=== PATIENT | male | born 1950 | race Caucasian/White ===

== ENCOUNTER 2016-11-13 13:10 | Inpatient (IN) | payer MEDICARE, MEDICAID ==
[2016-11-13 13:43] LABS: % LYMPHOCYTES 14.5 % (20.0-50.0); % MONOCYTES 10.6 % (2.0-10.0); % NEUTROPHILS 73.9 % (40.0-80.0); HEMATOCRIT 39.3 % (39.0-49.0); HEMOGLOBIN 13.4 gm/dL (12.6-17.4); MEAN CELL VOLUME 90.1 fl (80-99); MEAN CORPUSCULAR HEMOGLOBIN 30.8 pg (27.0-31.0); MEAN CORPUSCULAR HGB CONC 34.2 pg (28.0-36.0); MEAN PLATELET VOLUME 7.8 fl; NEUTROPHILE ABSOLUTE 5.3 Th/cmm (1.8-8.0); PLATELET COUNT 183 Th/cmm (150-400); RED BLOOD COUNT 4.37 Mil/cmm (3.80-5.80); RED CELL DISTRIBUTION WIDTH 12.6 % (11.5-20.0); WHITE BLOOD COUNT 7.3 Th/cmm (4.8-10.8)
--- NOTE | 2016-11-13 13:51 | ED Physician Chart ---
Chief Complaint/HPI - Patient Information Date Seen:: 11/13/16 Time Seen:: 13:30 Chief Complaint:: Agitation History of Present Illness:: onset x 2 days of agitation, combative behavior, and aggression; no report of SIs; pt denies H/As, Neck pain, C/P, SOB, cough, Abd. Pain, A/N/V/D/C, fever, chills, or urinary s/s Allergies:: Allergies Allergy/AdvReac Type Severity Reaction Status Date / Time chlorpromazine AdvReac Verified 11/13/16 13:27 Vitals:: Vital Signs - 8 hr 11/13/16 13:31 Temp 98.1 F HR 99 RR 16 BP 114/85 O2 Sat % 97 Historian:: Patient, EMS Review:: Nurse's Note Reviewed, Old Chart Reviewed, EMS run form Reviewed, Transfer documents Reviewed Review of Systems - Review of Systems General/Constitutional: Fever, Chills, No weight loss, No weakness, No diaphoresis, No edema, No loss of appetite Skin: Skin lesions, Rash, No bruising Head: No headache, No light-headedness Eyes: No loss of vision, No pain, No diplopia ENT: No earache, No nasal drainage, No sore throat, No tinnitus Neck: No neck pain, No swelling, No thyromegaly, No stiffness, No mass noted Cardio Vascular: No chest pain, No palpitations, No PND, No orthopnea, No edema Pulmonary: No SOB, No cough, No sputum, No wheezing GI: No nausea, No vomiting, No diarrhea, No pain, No melena, No hematochezia, No constipation, No hematemesis G/U: No dysuria, No frequency, No hematuria Musculoskeletal: No bone or joint pain, No back pain, No muscle pain Endocrine: No polyuria, No polydipsia Psychiatric: Prior psych history, Depression, Anxiety, No suicidal ideation, No homicidal ideation, No auditory hallucination, No visual hallucination Hematopoietic: No bruising, No lymphadenopathy Allergic/Immuno: No urticaria, No angioedema Neurological: No syncope, No focal symptoms, No weakness, No paresthesia, No headache, No seizure, No dizziness, No confusion, No vertigo Past Medical History - Past Medical History Obtainable: Yes Past Medical History: HTN Family History: HTN Social History: Smoker, No Alcohol, No Drug Use, Single, Care Facility Surgical History: None Psychiatricy History: Depression, Bipolar Medication: Reviewed Family Medical History - Family Member Mother History Unknown: Yes Physical Exam - Physical Examination General/Constitutional: Awake, Well-developed, well-nourished, Alert, No distress, GCS 15, Non-toxic appearing, Ambulatory Head: Atraumatic Eyes: Lids, conjuctiva normal, PERRL, EOMI Skin: Nl inspection, No rash, No skin lesions, No ecchymosis, Well hydrated, No lymphadenopathy ENMT: External ears, nose nl, Nasal exam nl, Lips, teeth, gums nl Neck: Nontender, Full ROM w/o pain, No JVD, No nuchal rigidity, No bruit, No mass, No stridor Respiratory: Nl effort/Exclusion, Clear to Auscultation, No Wheeze/Rhonchi/Rales Cardio Vascular: RRR, No murmur, gallop, rubs, NL S1 S2 GI: No tenderness/rebounding/guarding, No organomegaly, No hernia, Normal BS's, Nondistended, No mass/bruits, No McBurney tenderness : No CVA tenderness Extremities: No tenderness or effusion, Full ROM, normal strength in all extremities, No edema, Normal digits & nails Neuro/Psych: Alert/oriented, DTR's symmetric, Normal sensory exam, Normal motor strength, Normal gait, No focal deficits Other Neuro/Psych comments:: + Psychomotor Agitation; Mood/Affect: Labile Misc: normal gait, Normal back, No paraspinal tenderness Labs/Radiology/EKG Results - Lab Results Results: Laboratory Tests 11/13/16 13:30 WBC 7.3 RBC 4.37 Hgb 13.4 Hct 39.3 MCV 90.1 MCH 30.8 MCHC Differential 34.2 RDW 12.6 Plt Count 183 MPV 7.8 Neutrophils % 73.9 Lymphocytes % 14.5 L Monocytes % 10.6 H Eosinophils % 1.0 Basophils % 0.0 Comments:: Na+: 127 ED Septic Shock - . Is Septic Shock (SBP<90, OR Lactate>4 mmol\L) present?: No - <6hrs of presentation: Vital Signs: Vital Signs - 8 hr 11/13/16 13:31 Temp 98.1 F HR 99 RR 16 BP 114/85 O2 Sat % 97 Reassessment (Disposition) - Reassessment Reassessment Condition:: Improved - Diagnosis Diagnosis:: Hyponatremia; Dehydration; Manic-Depression - Aftercare/Follow up Instructions Aftercare/Follow-Up Instructions:: Counseled pt regarding lab results/diagnosis & need follow up, Counseled pt & family regarding lab results/diagnosis & need follow up - Patient Disposition Discharge/Transfer:: Acute Care w/in this hosp Accepting Physician:: Dr. Leone Time Called:: [id number] Time Responded:: 14:45 Admitted to:: Med/Surg Spoke to:: Dr. Leone Admitting Medical Physician:: Dr. Leone Condition at Disposition:: Stable, Improved ED Discharge Plan - Patient Disposition Instructions: Psychosis
[2016-11-13 14:03] LABS: ALB/GLOB RATIO 1.8 (1.0-1.8); ALKALINE PHOSPHATASE 65 U/L (34-104); ANION GAP 4.6 (7.0-16.0); BILIRUBIN,TOTAL 0.4 mg/dL (0.3-1.0); BUN - UREA NITROGEN 14 mg/dL (7-25); BUN/CREATININE RATIO 17.5; CALCIUM SERUM 9.3 mg/dL (8.6-10.3); CARBON DIOXIDE 26.4 mEq/L (21.0-31.0); CHLORIDE 100 mEq/L (98-107); CHOLESTEROL 133 mg/dL (<200); CREATININE - SERUM 0.8 mg/dL (0.7-1.3); GLUCOSE 95 mg/dL (70-105); SGOT 18 U/L (13-39); SGPT/ALT 3 U/L (7-52); SODIUM SERUM 127 mEq/L (136-145); TRIGLYCERIDES 49 mg/dL (<150)
[2016-11-13 14:34] LABS: URINE BILIRUBIN NEGATIVE (NEGATIVE); URINE BLOOD NEGATIVE (NEGATIVE); URINE GLUCOSE (UA) NEGATIVE (NEGATIVE); URINE KETONE NEGATIVE (NEGATIVE); URINE PH 6.5 (4.6 - 8.0); URINE PROTEIN NEGATIVE (NEGATIVE); URINE UROBILINOGEN 0.2 E.U./dL (0.2 - 1.0)
[2016-11-13 14:39] LABS: URINE AMORPHOUS SEDIMENT FEW URATES (NONE SEEN); URINE BACTERIA FEW /hpf (NONE SEEN); URINE COLOR YELLOW; URINE EPITHELIAL CELLS RARE /lpf (FEW); URINE RBC NONE SEEN /hpf (0-5); URINE WBC 0-2 /hpf (0-5)
[2016-11-13] MEDS: Sodium Chloride 0.9% 1,000 ML IV ONE ×2 (15:05→17:57)
[2016-11-13] MEDS ORDERED: VTE Chemical Prophylaxis Screen/Admission MC PRN (17:40)
--- NOTE | 2016-11-13 20:58 | Admit Criteria Form ---
Admit Criteria Forms - Admit Criteria Diagnosis: PSYCHIATRIC DISORDERS (Place 'X' for any and all applicable criteria): Ongoing inpatient care may be needed for 1 or more of the following(1)(2)(3)(4)( 6)(7)(8): [ ]I. Danger to self or others not manageable at lower level of care. [ ]II. Grave disability (eg, inability to perform self care necessary at lower level of care) [ ]III. Agitation or inappropriate behavior interfering with care for primary condition (eg, attempting to discontinue lines or drains prematurely, unable to cooperate with respiratory care) [X ]IV. Severe disability or disorder indicated by ALL of the following: [X ]a) Severe behavioral health disorder-related symptoms or condition indicated by 1 or more of the following: [ ]i) Severe problem with cognition, memory, judgment, or impulse control [ X]ii) Severe clinical manifestations (eg, hallucinations , delusions, other acute psychotic symptoms, doris, extreme agitation or anxiety) [X ]b) Patient management at lower level of care is not feasible until acute intervention or modification is initiated. Extended stay beyond goal length of stay for the primary condition may be needed until ALLof the following are present(1)(2)(3)(4)(7)62)(23): [ ]a) Danger to self or others is absent or manageable at lower level of care [ ]b) Behavior crisis management, including physical or chemical restraints, is required and is not available at a lower level of care. [ ]c) Behavioral symptoms (e.g., agitation, somnolence, inappropriate behavior) are present, and are not manageable at a lower level of care. [ ]d) Patient cannot understand follow-up treatment and crisis plan. [ ]e) Provider and supports are sufficiently available at lower level of care. [ ]f) Patient can participate (e.g., verify absence of plan for harm) and is in needed of monitoring. The original [facility] content created by [facility] has been revised. The portions of the content which have been revised are identified through the use of italic text or in bold, and [facility] has neither reviewed nor approved the modified material. All other unmodified content is copyright [facility]. Please see references footnoted in the original [facility] edition 2017 Admit Criteria Met?: Yes
--- NOTE | 2016-11-13 21:27 | History & Physical ---
ADMIT DATE: 11/13/2016 HISTORY OF PRESENT ILLNESS: The patient came to the Emergency Room because of his combative behavior, aggression and apparently had no cough, no chest pain, no other problem, and he was found to have hyponatremia on 05/03/2016 and was admitted for medical lin first before sending him to the Geropsych Unit. The patient is a poor historian. All the notes were from the previous chart. REVIEW OF SYSTEMS: Otherwise, decreased sensorium. PAST MEDICAL HISTORY: The patient is known to have a history of hypertension in the past, history of depression and bipolar. PHYSICAL EXAMINATION: HEAD: Normal. ENT: Normal. LUNGS: Clear. CARDIOVASCULAR SYSTEM: S1 and S2 heard. ABDOMEN: Soft. Bowel sounds are heard. CENTRAL NERVOUS SYSTEM: Decreased sensorium. LABORATORY DATA: White count was 97.3 and hemoglobin 13.4. Electrolytes are normal. DIAGNOSES: Hyponatremia, dehydration, manic depression, severe agitation, and psychosis. PLAN: The patient is being admitted initially to give him normal saline. We will repeat his labs, and we will also have Dr. Lyons see the patient, and Dr. Smith will see the patient for his psych problem in the Geropsych Unit. JOB# [id number]
[2016-11-14 07:13] LABS: ANION GAP 8.9 (7.0-16.0); BUN - UREA NITROGEN 14 mg/dL (7-25); BUN/CREATININE RATIO 17.5; CALCIUM SERUM 9.6 mg/dL (8.6-10.3); CARBON DIOXIDE 24.1 mEq/L (21.0-31.0); CHLORIDE 104 mEq/L (98-107); CREATININE - SERUM 0.8 mg/dL (0.7-1.3); GLUCOSE 90 mg/dL (70-105); SODIUM SERUM 133 mEq/L (136-145)
--- NOTE | 2016-11-14 15:02 | History & Physical ---
ADMIT DATE: 11/13/2016 HISTORY OF PRESENT ILLNESS: The patient came to the Emergency Room because of aggressive behavior and the patient had a workup done for hyponatremia. Initially was admitted to the medical floor, was given some normal saline and later on, his sodium level came back up. The patient known to have history of hypertension, depression, and bipolar in the past. PHYSICAL EXAMINATION: VITAL SIGNS: Stable. HEAD: Normal. ENT: Normal. NECK: Supple, nontender. LUNGS: Clear. CARDIOVASCULAR SYSTEM: S1, S2 heard. ABDOMEN: Soft. DIAGNOSES: 1. Hyponatremia, improved. 2. Dehydration, improved. 3. Severe manic depression. 4. Severe agitation. 5. Psychosis. Dr. Smith, psychiatrist, had seen the patient and the patient was sent to the Geropsych Unit for the history and physical for Geropsych Unit. I will follow along with psychiatrist regarding hypertension and monitoring his electrolytes if any other problem arises. JOB# [id number]
--- NOTE | 2016-12-02 22:41 | Discharge Summary ---
DATE OF DISCHARGE: 11/14/2016 HOSPITAL COURSE: The patient was admitted on 11/13/2016 to the medical floor with a history of hyponatremia, dehydration, history of manic depression, history of psychosis. Dr. Smith was the psychiatrist ____ hyponatremia was treated with IV normal saline, improved, and his hyponatremia ____. The patient was in a stable condition on 11/14/2016. The patient was sent to Geropsych Unit where I will be following the patient. FINAL DIAGNOSES: Hyponatremia improved, dehydration improved, malnutrition, and history of psychosis. JOB# [id number]
== END 2016-11-14 09:55 | DRG 640 ==
LOC: ER 13:10 → MSI 14:26
PROVIDERS: ADMIT Internal Medicine; ATTEND Internal Medicine
DX: E87.1 Hypo-osmolality and hyponatremia (principal); E41 Nutritional marasmus; E86.0 Dehydration; F30.9 Manic episode, unspecified; I10 Essential (primary) hypertension; F29 Unspecified psychosis not due to a substance or known physiological condition; F17.210 Nicotine dependence, cigarettes, uncomplicated; Z88.8 Allergy status to other drugs, medicaments and biological substances; Z82.49 Family history of ischemic heart disease and other diseases of the circulatory system; Z68.21 Body mass index [BMI] 21.0-21.9, adult
CPT/HCPCS: 36415-UA; 80048-TC; 80053-TC; 80061-TC; 81001-TC; 84443-TC; 85025-TC; 86592-TC; 93005; J7030

== ENCOUNTER 2016-11-14 09:56 | Inpatient (IN) | payer MEDICARE, MEDICAID ==
[2016-11-14 13:19] VITALS: BP 136/81
[2016-11-14] MEDS ORDERED: Magnesium Hydroxide (MOM) 30 mL UDC PO PRN (13:25)
[2016-11-14] MEDS ORDERED: Maalox 30 mL Cup PO PRN (13:25)
--- NOTE | 2016-11-15 00:18 | Psychosocial Evaluation ---
DATE OF SERVICE: 11/14/2016 CHIEF COMPLAINT: Agitation and aggressive behavior. HISTORY OF PRESENT ILLNESS: The patient was admitted to the hospital on a 5150 hold because of dangerous to others. The patient became aggressive and agitated in the half-way [place] he lives. He starts to attack staff and other residents for no apparent reason. Also, has been severely angry and irritable. Chart reviewed and I tried to interview the patient. The patient is severely paranoid and he said "I don't talk to Mexicans." He refused to answer any of my questions and was extremely angry and agitated and irritable. Also did not answer any of other questions and kept walking ignoring my questions, and I had to follow him, but at the same time he was more angry and I had quit my trials to interview him. Most of the information was obtained from the chart and from my trial. PAST PSYCHIATRIC HISTORY: The patient has history of what seems to be schizophrenia versus schizoaffective. He is on Risperdal. PAST MEDICAL HISTORY: Noncontributory. SOCIAL HISTORY: The patient lives in a half-way. No known alcohol or drug use. No known legal issues or abuse issues. ALLERGIES: No known allergies. MENTAL STATUS EXAMINATION: The patient appears older than his stated age. Wearing a hat. Disheveled and dirty. Angry and irritable mood. Guarded and did not answer any of my questions because of anger and paranoia. Did not answer question regarding hallucinations or delusions or suicide or homicide, and unable to assess the rest of the mental status exam. ASSESSMENT: PRIMARY DIAGNOSIS: Chronic paranoid schizophrenia with acute exacerbation. SECONDARY DIAGNOSIS: Rule out schizoaffective disorder. TREATMENT PLAN: We will give the patient Risperdal and we will adjust the dose. Also, we will monitor his behavior and to do behavioral modification. ESTIMATED LENGTH OF STAY: 7-10 days. THE PATIENT'S STRENGTHS AND WEAKNESSES: The patient's strength is not clear at this time. Weakness is his poor impulse control. AFTER DISCHARGE PLAN: Outpatient treatment and followup will continue as an outpatient. CRITERIA FOR DISCHARGE: The patient will not be aggressive and will stabilize with psychotropic medications and will establish outpatient treatment plans. JOB# [id number]
--- NOTE | 2016-11-15 02:47 | Consultation ---
DATE OF CONSULTATION: 11/14/2016 SINGLE FOLD MACHINE OPERATOR: Terrance Lyons M.D. REASON FOR CONSULTATION: Hyponatremia. HISTORY OF PRESENT ILLNESS: This is a 66-year-old male with past medical history of hypertension, who was brought in because of aggressive fever. A few hours prior to admission, the patient was very aggressive, combative, and uncooperative to the staff and residents. He was then brought to the Emergency Room. Sodium level was low at 127 with a white count of 7.3. He was admitted initially at [facility]/Surg. He was started on sodium chloride tablets. His sodium improved to 133 and was subsequently transferred to [facility]. He denied any nausea and vomiting, as well as diarrhea. PAST MEDICAL HISTORY: 1. Essential hypertension. 2. Bipolar disorder. 3. Depression. 4. Parkinson's disease. CURRENT MEDICATIONS: Acetaminophen, lorazepam, atenolol, carbidopa levodopa, oxybutynin, Risperdal, and sodium chloride tablets. ALLERGIES: ALLERGIC TO . SOCIAL AND FAMILY HISTORY: I was not able to get directly from the patient because he refused to provide information. PHYSICAL EXAMINATION: GENERAL: The patient is awake, verbal, slightly uncooperative. VITALS SIGNS: Vitals are stable. SKIN: Good turgor, warm, no rash, no jaundice appreciated. HEENT: Head: Normocephalic, atraumatic. Eyes: Extraocular muscles intact. Pupils are equal, round, reactive to light and accommodates. Anicteric sclerae. [place] conjunctivae. Nose, midline nasal septum. Mouth: Dry mucosa with adequate dentition. NECK: Supple, no adenopathy, no thyromegaly, no bruits. Trachea palpated in the midline. CHEST AND CVS: S1, S2. No rub, murmur, no gallop appreciated. Point of maximal impulse fifth intercostal space clavicular line. No abdominal or femoral bruits appreciated. LUNGS: Equal expansion. No use of accessory muscles. No supraclavicular retractions, decreased breath sounds, clear to auscultation without any wheeze. ABDOMEN: Flat, soft. Positive for bowel sounds. No bruits either diastolic or systolic. RECTAL: The patient refused. GENITOURINARY: He refused. EXTREMITIES: He has a palpable femoral, but unable to fully appreciate popliteal and dorsalis pedis pulses. He has no edema, cyanosis nor clubbing. NEUROLOGIC: The patient is verbal, answers to questions as he desires with voluntary movements of all of his extremities. IMPRESSION: 1. Hyponatremia secondary to increased sodium loss secondary to free water loss. 2. Acute decompensation of psychosis. 3. Bipolar disorder. 4. Depression. 5. Parkinson's disease. PLAN: 1. Regular diet. 2. Monitor electrolytes as needed. 3. Further workup will depend on results of electrolytes. Thank you, Dr. Palomo for this consult. I will follow the patient closely with you. JOB# [id number]
[2016-11-15] MEDS ORDERED: Haloperidol Lactate 5 mg/mL 1mL Vial ONE ×2 (07:14→07:15)
[2016-11-15] MEDS ORDERED: Haloperidol Lactate 5 mg/mL 1mL Vial IM STA (07:16)
[2016-11-15] MEDS: Multivitamin Tab PO SCH (09:10)
[2016-11-15] MEDS: Oxybutynin Chloride 5 mg ER Tab PO SCH (09:10)
--- NOTE | 2016-11-15 12:18 | General Progress Note ---
Subjective - Review of Systems Events since last encounter: no change patient still irritable agressive behaviour denies cough , denies cp Objective - Physical Exam Vitals and I&O: Vital Signs Temp 98.0 F 11/14/16 11:02 Pulse 97 11/14/16 11:02 Resp 20 11/14/16 11:02 BP 136/81 11/14/16 13:18 Pulse Ox 97 11/14/16 11:02 Intake & Output 11/14/16 11/15/16 11/15/16 18:59 06:59 18:59 Intake Total 120 Balance 120 Intake: Oral 120 Other: # Voids 1 # Bowel Movements 0 Active Medications: Current Medications Acetaminophen (Tylenol) 650 mg PO Q4HR PRN PRN Reason: Mild Pain / Temp above 100 Stop: 01/13/17 13:24 Al Hydrox/Mg Hydrox/Simethicone (Maalox) 30 ml PO Q4HR PRN PRN Reason: GI DISTRESS Stop: 01/13/17 13:24 Carbidopa/Levodopa (Sinemet 25 Mg-250 Mg) 1 tab PO QID [facility] Stop: 01/13/17 16:59 Last Admin: 11/15/16 09:10 Dose: 1 tab Lorazepam (Ativan) 1 mg PO Q4HR PRN; Protocol PRN Reason: Anxiety Stop: 01/13/17 14:16 Magnesium Hydroxide (Milk Of Magnesia) 30 ml PO HS PRN PRN Reason: Constipation Multivitamins/Vitamin C (Theragran) 1 tab PO DAILY RICARDO Stop: 01/14/17 08:59 Last Admin: 11/15/16 09:10 Dose: 1 tab Oxybutynin Chloride (Ditropan Xl) 5 mg PO DAILY RICARDO Stop: 01/14/17 08:59 Last Admin: 11/15/16 09:10 Dose: 5 mg Risperidone (Risperdal) 3 mg PO BID RICARDO PRN Reason: Protocol Stop: 01/13/17 16:59 Last Admin: 11/15/16 09:10 Dose: 3 mg Sodium Chloride (Nacl Tab) 2 gm PO BID RICARDO Stop: 01/13/17 16:59 Last Admin: 11/15/16 09:11 Dose: 2 gm Zolpidem Tartrate (Ambien) 5 mg PO HS PRN PRN Reason: Insomnia Stop: 01/13/17 13:24 - Procedures Procedures: Procedures Procedure Code Date INDIVID PSYCHOTHERAP NEC 94.39 10/14/05 OTHER GROUP THERAPY 94.44 11/11/05 RECREATIONAL THERAPY 93.81 10/14/05
--- NOTE | 2016-11-15 20:54 | Progress Notes ---
DATE: 11/15/2016 SUBJECTIVE: Chart reviewed and the patient interviewed. Also discussed the patient's condition with the staff and reviewed records and labs. The patient is confused and he is still suspicious and paranoid. The patient also is still easily agitated. Also, still needs lots of redirections. He also is still yelling and screaming constantly and is in angry and in irritable mood. During interview, the patient is confused and agitated. Also, has thought processes that are disorganized and circumstantial with flight of ideas. ASSESSMENT: The patient is still aggressive and agitated and psychotic. TREATMENT PLAN: We will continue to monitor his behavior and his condition closely. Also, we will continue the patient on Risperdal 3 mg twice a day and we will monitor his behavior and his medications closely. JOB# [id number]
[2016-11-16] MEDS: Multivitamin Tab PO SCH (08:10)
[2016-11-16] MEDS: Oxybutynin Chloride 5 mg ER Tab PO SCH (08:10)
--- NOTE | 2016-11-16 20:49 | Internal Medicine Prog Note ---
Internal Medicine Objective - Physical Exam Vitals and I&O: Vital Signs Temp 97 F 11/16/16 14:00 Pulse 87 11/16/16 14:00 Resp 20 11/16/16 14:00 BP 123/80 11/16/16 14:00 Pulse Ox 96 11/16/16 14:00 Intake & Output 11/16/16 11/16/16 11/17/16 06:59 18:59 06:59 Intake Total 720 2400 Balance 720 2400 Intake: Oral 720 2400 Other: # Voids 1 4 # Bowel Movements 0 Active Medications: Current Medications Acetaminophen (Tylenol) 650 mg PO Q4HR PRN PRN Reason: Mild Pain / Temp above 100 Stop: 01/13/17 13:24 Al Hydrox/Mg Hydrox/Simethicone (Maalox) 30 ml PO Q4HR PRN PRN Reason: GI DISTRESS Stop: 01/13/17 13:24 Carbidopa/Levodopa (Sinemet 25 Mg-250 Mg) 1 tab PO QID RICARDO Stop: 01/13/17 16:59 Last Admin: 11/16/16 17:09 Dose: 1 tab Lorazepam (Ativan) 1 mg PO Q4HR PRN; Protocol PRN Reason: Anxiety Stop: 01/13/17 14:16 Magnesium Hydroxide (Milk Of Magnesia) 30 ml PO HS PRN PRN Reason: Constipation Multivitamins/Vitamin C (Theragran) 1 tab PO DAILY RICARDO Stop: 01/14/17 08:59 Last Admin: 11/16/16 08:10 Dose: 1 tab Oxybutynin Chloride (Ditropan Xl) 5 mg PO DAILY RICARDO Stop: 01/14/17 08:59 Last Admin: 11/16/16 08:10 Dose: 5 mg Risperidone (Risperdal) 3 mg PO BID RICARDO PRN Reason: Protocol Stop: 01/13/17 16:59 Last Admin: 11/16/16 17:09 Dose: 3 mg Sodium Chloride (Nacl Tab) 2 gm PO BID RICARDO Stop: 01/13/17 16:59 Last Admin: 11/16/16 17:09 Dose: 2 gm Zolpidem Tartrate (Ambien) 5 mg PO HS PRN PRN Reason: Insomnia Stop: 01/13/17 13:24 Last Admin: 11/15/16 21:32 Dose: 5 mg - Procedures Procedures: Procedures Procedure Code Date INDIVID PSYCHOTHERAP NEC 94.39 10/14/05 OTHER GROUP THERAPY 94.44 11/11/05 RECREATIONAL THERAPY 93.81 10/14/05
--- NOTE | 2016-11-16 22:07 | Progress Notes ---
DATE: 11/16/2016 The patient was seen, chart reviewed, and discussed with staff. The patient continues to be extremely paranoid, hypervigilant, very confused, and easily irritable, requires almost constant redirections. He has, however, been compliant with his medications. PLAN: The patient continues to be actively psychotic, unpredictable, so that he will require ____ treatment. We will monitor the patient on a daily basis for his response to treatment and titrate meds as needed. JOB# [id number]
[2016-11-17] MEDS: Oxybutynin Chloride 5 mg ER Tab PO SCH (08:22)
[2016-11-17] MEDS: Multivitamin Tab PO SCH (08:22)
--- NOTE | 2016-11-17 08:51 | General Progress Note ---
Subjective - Review of Systems Events since last encounter: patient continues to be paranoid ,confused no acute distress Objective - Physical Exam Vitals and I&O: Vital Signs Temp 98.8 F 11/17/16 06:58 Pulse 85 11/17/16 06:58 Resp 20 11/17/16 06:58 BP 122/66 11/17/16 06:58 Pulse Ox 98 11/17/16 06:58 Intake & Output 11/16/16 11/17/16 11/17/16 18:59 06:59 18:59 Intake Total 2400 120 Balance 2400 120 Intake: Oral 2400 120 Other: # Voids 4 3 # Bowel Movements 0 Active Medications: Current Medications Acetaminophen (Tylenol) 650 mg PO Q4HR PRN PRN Reason: Mild Pain / Temp above 100 Stop: 01/13/17 13:24 Al Hydrox/Mg Hydrox/Simethicone (Maalox) 30 ml PO Q4HR PRN PRN Reason: GI DISTRESS Stop: 01/13/17 13:24 Carbidopa/Levodopa (Sinemet 25 Mg-250 Mg) 1 tab PO QID [facility] Stop: 01/13/17 16:59 Last Admin: 11/17/16 08:22 Dose: 1 tab Lorazepam (Ativan) 1 mg PO Q4HR PRN; Protocol PRN Reason: Anxiety Stop: 01/13/17 14:16 Magnesium Hydroxide (Milk Of Magnesia) 30 ml PO HS PRN PRN Reason: Constipation Multivitamins/Vitamin C (Theragran) 1 tab PO DAILY RICARDO Stop: 01/14/17 08:59 Last Admin: 11/17/16 08:22 Dose: 1 tab Oxybutynin Chloride (Ditropan Xl) 5 mg PO DAILY RICARDO Stop: 01/14/17 08:59 Last Admin: 11/17/16 08:22 Dose: 5 mg Risperidone (Risperdal) 3 mg PO BID RICARDO PRN Reason: Protocol Stop: 01/13/17 16:59 Last Admin: 11/17/16 08:22 Dose: 3 mg Sodium Chloride (Nacl Tab) 2 gm PO BID RICARDO Stop: 01/13/17 16:59 Last Admin: 11/17/16 08:22 Dose: Not Given Zolpidem Tartrate (Ambien) 5 mg PO HS PRN PRN Reason: Insomnia Stop: 01/13/17 13:24 Last Admin: 11/16/16 22:49 Dose: 5 mg General: No acute distress HEENT: PERRLA Cardiovascular: Regular rate, Normal S1 - Procedures Procedures: Procedures Procedure Code Date INDIVID PSYCHOTHERAP NEC 94.39 10/14/05 OTHER GROUP THERAPY 94.44 11/11/05 RECREATIONAL THERAPY 93.81 10/14/05 Assessment/Plan - Problem List Patient Problems: All Active Problems Bipolar disease, chronic (Acute) F31.9 Depression (Acute) F32.9 HTN (hypertension) (Acute) I10 Parkinson disease (Acute) G20 - Plan Plan: cpm as per psych
--- NOTE | 2016-11-17 21:55 | Progress Notes ---
DATE: 11/17/2016 SUBJECTIVE: The patient seen, chart reviewed, discussed with staff. Currently in the hospital due to agitation, aggressive behaviors, agitated and aggressive in a [facility] where he lives, started to attack staff, angry, irritable. On [id number], the patient states he is in the hospital because "I got a cold." States the year is 2016, month is November. States he lives in a hospital, disoriented, confused, remains impulsive, unpredictable. ASSESSMENT: The patient remains symptomatic, impulsive, history of violence and aggressive behaviors. PLAN: Continue Risperdal, monitor closely. Given the severity of the patient's current ongoing symptoms, he is not safe for discharge. [facility]# [id number]
--- NOTE | 2016-11-18 07:54 | General Progress Note ---
Subjective - Review of Systems Subjective: awake, resting comfortable nad Objective - Physical Exam Vitals and I&O: Vital Signs Temp 98.0 F 11/18/16 05:33 Pulse 73 11/18/16 05:33 Resp 20 11/18/16 05:33 BP 101/69 11/18/16 05:33 Pulse Ox 96 11/18/16 05:33 Intake & Output 11/17/16 11/18/16 11/18/16 18:59 06:59 18:59 Intake Total 2400 Balance 2400 Intake: Oral 2400 Other: # Voids 4 2 # Bowel Movements 1 0 Active Medications: Current Medications Acetaminophen (Tylenol) 650 mg PO Q4HR PRN PRN Reason: Mild Pain / Temp above 100 Stop: 01/13/17 13:24 Last Admin: 11/18/16 03:46 Dose: 650 mg Al Hydrox/Mg Hydrox/Simethicone (Maalox) 30 ml PO Q4HR PRN PRN Reason: GI DISTRESS Stop: 01/13/17 13:24 Carbidopa/Levodopa (Sinemet 25 Mg-250 Mg) 1 tab PO QID [facility] Stop: 01/13/17 16:59 Last Admin: 11/17/16 21:14 Dose: Not Given Lorazepam (Ativan) 1 mg PO Q4HR PRN; Protocol PRN Reason: Anxiety Stop: 01/13/17 14:16 Last Admin: 11/18/16 03:46 Dose: 1 mg Magnesium Hydroxide (Milk Of Magnesia) 30 ml PO HS PRN PRN Reason: Constipation Multivitamins/Vitamin C (Theragran) 1 tab PO DAILY [facility] Stop: 01/14/17 08:59 Last Admin: 11/17/16 08:22 Dose: 1 tab Oxybutynin Chloride (Ditropan Xl) 5 mg PO DAILY [facility] Stop: 01/14/17 08:59 Last Admin: 11/17/16 08:22 Dose: 5 mg Risperidone (Risperdal) 3 mg PO BID [facility] PRN Reason: Protocol Stop: 01/13/17 16:59 Last Admin: 11/17/16 16:52 Dose: 3 mg Sodium Chloride (Nacl Tab) 2 gm PO BID [facility] Stop: 01/13/17 16:59 Last Admin: 11/17/16 16:52 Dose: Not Given Zolpidem Tartrate (Ambien) 5 mg PO HS PRN PRN Reason: Insomnia Stop: 01/13/17 13:24 Last Admin: 11/16/16 22:49 Dose: 5 mg General: No acute distress HEENT: PERRLA Cardiovascular: Regular rate, Normal S1 - Procedures Procedures: Procedures Procedure Code Date INDIVID PSYCHOTHERAP NEC 94.39 10/14/05 OTHER GROUP THERAPY 94.44 11/11/05 RECREATIONAL THERAPY 93.81 10/14/05 Assessment/Plan - Problem List Patient Problems: All Active Problems Bipolar disease, chronic (Acute) F31.9 Depression (Acute) F32.9 HTN (hypertension) (Acute) I10 Parkinson disease (Acute) G20 - Plan Plan: cpm as per psych
[2016-11-18] MEDS: Multivitamin Tab PO SCH (08:02)
[2016-11-18] MEDS: Oxybutynin Chloride 5 mg ER Tab PO SCH (08:02)
--- NOTE | 2016-11-19 01:22 | Progress Notes ---
DATE: 11/18/2016 SUBJECTIVE: Chart reviewed and the patient interviewed. Also discussed the patient's condition with the staff and reviewed records and labs. The patient is still anxious and is still suspicious and paranoid. The patient also is hyperverbal and hyper talkative. Also, still seems to be responding to stimuli. On the other hand, the patient is slightly easier to redirect him. He denies any side effects of medications. ASSESSMENT: The patient is still psychotic. TREATMENT PLAN: We will continue monitoring his behavior and his condition closely. Also, we will increase Risperdal to 3 mg twice a day and we will continue to work on his ineffective coping and impulse control. JOB# [id number]
--- NOTE | 2016-11-19 08:38 | General Progress Note ---
Subjective - Review of Systems Events since last encounter: patient still psychotic , denies cp, sob Subjective: awake, resting comfortable nad Objective - Physical Exam Vitals and I&O: Vital Signs Temp 98.0 F 11/19/16 05:52 Pulse 86 11/19/16 05:52 Resp 20 11/19/16 05:52 BP 119/85 11/19/16 05:52 Pulse Ox 94 11/19/16 05:52 Intake & Output 11/18/16 11/19/16 11/19/16 18:59 06:59 18:59 Intake Total 750 600 Balance 750 600 Intake: Oral 750 600 Other: # Voids 3 2 # Bowel Movements 1 0 Active Medications: Current Medications Acetaminophen (Tylenol) 650 mg PO Q4HR PRN PRN Reason: Mild Pain / Temp above 100 Stop: 01/13/17 13:24 Last Admin: 11/18/16 20:53 Dose: 650 mg Al Hydrox/Mg Hydrox/Simethicone (Maalox) 30 ml PO Q4HR PRN PRN Reason: GI DISTRESS Stop: 01/13/17 13:24 Carbidopa/Levodopa (Sinemet 25 Mg-250 Mg) 1 tab PO QID [facility] Stop: 01/13/17 16:59 Last Admin: 11/18/16 20:53 Dose: 1 tab Lorazepam (Ativan) 1 mg PO Q4HR PRN; Protocol PRN Reason: Anxiety Stop: 01/13/17 14:16 Last Admin: 11/18/16 20:53 Dose: 1 mg Magnesium Hydroxide (Milk Of Magnesia) 30 ml PO HS PRN PRN Reason: Constipation Multivitamins/Vitamin C (Theragran) 1 tab PO DAILY [facility] Stop: 01/14/17 08:59 Last Admin: 11/18/16 08:02 Dose: 1 tab Oxybutynin Chloride (Ditropan Xl) 5 mg PO DAILY [facility] Stop: 01/14/17 08:59 Last Admin: 11/18/16 08:02 Dose: 5 mg Quetiapine Fumarate (Seroquel) 100 mg PO TID [facility] PRN Reason: Protocol Stop: 01/18/17 08:59 Sodium Chloride (Nacl Tab) 2 gm PO BID [facility] Stop: 01/13/17 16:59 Last Admin: 11/18/16 17:16 Dose: 2 gm Zolpidem Tartrate (Ambien) 5 mg PO HS PRN PRN Reason: Insomnia Stop: 01/13/17 13:24 Last Admin: 11/18/16 23:58 Dose: 5 mg General: No acute distress HEENT: PERRLA Cardiovascular: Regular rate, Normal S1 - Procedures Procedures: Procedures Procedure Code Date INDIVID PSYCHOTHERAP NEC 94.39 10/14/05 OTHER GROUP THERAPY 94.44 11/11/05 RECREATIONAL THERAPY 93.81 10/14/05 Assessment/Plan - Problem List Patient Problems: All Active Problems Bipolar disease, chronic (Acute) F31.9 Depression (Acute) F32.9 HTN (hypertension) (Acute) I10 Parkinson disease (Acute) G20 - Plan Plan: cpm as per psych
[2016-11-19] MEDS: Oxybutynin Chloride 5 mg ER Tab PO SCH (09:44)
[2016-11-19] MEDS: Multivitamin Tab PO SCH (09:44)
--- NOTE | 2016-11-19 19:17 | Progress Notes ---
DATE: 11/19/2016 SUBJECTIVE: Chart reviewed and the patient interviewed. Also discussed the patient's condition with the staff and reviewed records and labs. The patient is still extremely agitated and in irritable mood. The patient also is still demanding and is restless. Also seems to be suspicious and is still paranoid. The patient is also having difficulty expressing himself and his feelings. Otherwise, the patient is easier to redirect and he is compliant with taking his medications. ASSESSMENT: The patient is still psychotic and still can be dangerous to others. TREATMENT PLAN: We will continue monitoring his behavior and his condition closely. Also, we will discontinue Risperdal since it seems is not helping and we will start the patient on Seroquel, we will adjust the dose. Also, we will work on his anger and his ineffective coping and will continue to follow up. JOB# [id number]
[2016-11-20] MEDS: Oxybutynin Chloride 5 mg ER Tab PO SCH (08:23)
[2016-11-20] MEDS: Multivitamin Tab PO SCH (08:23)
--- NOTE | 2016-11-20 08:25 | General Progress Note ---
Subjective - Review of Systems Events since last encounter: no distress Subjective: awake, resting comfortable nad Objective - Physical Exam Vitals and I&O: Vital Signs Temp 0 F 11/20/16 06:32 Pulse 94 11/19/16 20:38 Resp 20 11/19/16 20:38 BP 130/82 11/19/16 20:38 Pulse Ox 96 11/19/16 20:38 Intake & Output 11/19/16 11/20/16 11/20/16 18:59 06:59 18:59 Intake Total 1200 240 Balance 1200 240 Intake: Oral 1200 240 Other: # Voids 4 5 # Bowel Movements 1 0 Active Medications: Current Medications Acetaminophen (Tylenol) 650 mg PO Q4HR PRN PRN Reason: Mild Pain / Temp above 100 Stop: 01/13/17 13:24 Last Admin: 11/20/16 04:09 Dose: 650 mg Al Hydrox/Mg Hydrox/Simethicone (Maalox) 30 ml PO Q4HR PRN PRN Reason: GI DISTRESS Stop: 01/13/17 13:24 Carbidopa/Levodopa (Sinemet 25 Mg-250 Mg) 1 tab PO QID [facility] Stop: 01/13/17 16:59 Last Admin: 11/20/16 08:23 Dose: 1 tab Lorazepam (Ativan) 1 mg PO Q4HR PRN; Protocol PRN Reason: Anxiety Stop: 01/13/17 14:16 Last Admin: 11/18/16 20:53 Dose: 1 mg Magnesium Hydroxide (Milk Of Magnesia) 30 ml PO HS PRN PRN Reason: Constipation Multivitamins/Vitamin C (Theragran) 1 tab PO DAILY [facility] Stop: 01/14/17 08:59 Last Admin: 11/20/16 08:23 Dose: 1 tab Oxybutynin Chloride (Ditropan Xl) 5 mg PO DAILY [facility] Stop: 01/14/17 08:59 Last Admin: 11/20/16 08:23 Dose: 5 mg Quetiapine Fumarate (Seroquel) 100 mg PO BID [facility] PRN Reason: Protocol Stop: 01/19/17 08:59 Last Admin: 11/20/16 08:23 Dose: 100 mg Quetiapine Fumarate (Seroquel) 200 mg PO HS [facility]O PRN Reason: Protocol Stop: 01/19/17 20:59 Sodium Chloride (Nacl Tab) 2 gm PO BID [facility] Stop: 01/13/17 16:59 Last Admin: 11/20/16 08:22 Dose: 2 gm Zolpidem Tartrate (Ambien) 5 mg PO HS PRN PRN Reason: Insomnia Stop: 01/13/17 13:24 Last Admin: 11/18/16 23:58 Dose: 5 mg General: No acute distress HEENT: PERRLA Cardiovascular: Regular rate, Normal S1 - Procedures Procedures: Procedures Procedure Code Date INDIVID PSYCHOTHERAP NEC 94.39 10/14/05 OTHER GROUP THERAPY 94.44 11/11/05 RECREATIONAL THERAPY 93.81 10/14/05 Assessment/Plan - Problem List Patient Problems: All Active Problems Bipolar disease, chronic (Acute) F31.9 Depression (Acute) F32.9 HTN (hypertension) (Acute) I10 Parkinson disease (Acute) G20 - Plan Plan: cpm as per psych
--- NOTE | 2016-11-20 08:29 | Progress Notes ---
DATE: 11/20/2016 SUBJECTIVE: Chart reviewed and the patient interviewed. Also discussed the patient's condition with the staff and reviewed records and labs. The patient is still severely agitated and restless. The patient also is still in irritable and angry mood. Also, is still interacting minimally with others. He also is complaining of difficulty sleeping at night. Also, still has episodes of anger and irritability and he needs lots of redirections. Otherwise, the patient is compliant with taking his medications. MENTAL STATUS EXAM: The patient appears older than his stated age. Awaiting cowboy hat and walking around the unit aimlessly. Easily agitated. Thought processes are circumstantial and tangential with flight of ideas. The patient also is rambling and thought processes are circumstantial and tangential with occasional flight of ideas. ASSESSMENT: The patient is still agitated and psychotic. TREATMENT PLAN: We will continue monitoring his behavior and his condition closely. Also, we will increase Seroquel to 100 mg twice a day and 200 mg at bedtime. Hopefully, that will help with psychosis and agitation as well as his irritability and insomnia. Also, we will continue to work on his behavior modification and we follow up. JOB# [id number]
--- NOTE | 2016-11-21 07:57 | General Progress Note ---
Subjective - Review of Systems Events since last encounter: patient is still psychotic Subjective: awake, resting comfortable nad Objective - Physical Exam Vitals and I&O: Vital Signs Temp 0 F 11/20/16 06:32 Pulse 86 11/20/16 09:22 Resp 20 11/20/16 20:00 BP 130/82 11/19/16 20:38 Pulse Ox 96 11/19/16 20:38 Intake & Output 11/20/16 11/21/16 11/21/16 18:59 06:59 18:59 Intake Total 900 120 Balance 900 120 Intake: Oral 900 120 Other: # Voids 4 3 # Bowel Movements 1 Active Medications: Current Medications Acetaminophen (Tylenol) 650 mg PO Q4HR PRN PRN Reason: Mild Pain / Temp above 100 Stop: 01/13/17 13:24 Last Admin: 11/20/16 04:09 Dose: 650 mg Al Hydrox/Mg Hydrox/Simethicone (Maalox) 30 ml PO Q4HR PRN PRN Reason: GI DISTRESS Stop: 01/13/17 13:24 Carbidopa/Levodopa (Sinemet 25 Mg-250 Mg) 1 tab PO QID [facility] Stop: 01/13/17 16:59 Last Admin: 11/20/16 21:11 Dose: Not Given Lorazepam (Ativan) 1 mg PO Q4HR PRN; Protocol PRN Reason: Anxiety Stop: 01/13/17 14:16 Last Admin: 11/18/16 20:53 Dose: 1 mg Magnesium Hydroxide (Milk Of Magnesia) 30 ml PO HS PRN PRN Reason: Constipation Multivitamins/Vitamin C (Theragran) 1 tab PO DAILY [facility] Stop: 01/14/17 08:59 Last Admin: 11/20/16 08:23 Dose: 1 tab Oxybutynin Chloride (Ditropan Xl) 5 mg PO DAILY [facility] Stop: 01/14/17 08:59 Last Admin: 11/20/16 08:23 Dose: 5 mg Quetiapine Fumarate (Seroquel) 100 mg PO BID [facility]O PRN Reason: Protocol Stop: 01/19/17 08:59 Last Admin: 11/20/16 17:02 Dose: 100 mg Quetiapine Fumarate (Seroquel) 200 mg PO HS [facility]O PRN Reason: Protocol Stop: 01/19/17 20:59 Last Admin: 11/20/16 21:11 Dose: Not Given Sodium Chloride (Nacl Tab) 2 gm PO BID [facility] Stop: 01/13/17 16:59 Last Admin: 11/20/16 17:02 Dose: 2 gm Zolpidem Tartrate (Ambien) 5 mg PO HS PRN PRN Reason: Insomnia Stop: 01/13/17 13:24 Last Admin: 11/18/16 23:58 Dose: 5 mg General: No acute distress HEENT: PERRLA Cardiovascular: Regular rate, Normal S1 - Procedures Procedures: Procedures Procedure Code Date INDIVID PSYCHOTHERAP NEC 94.39 10/14/05 OTHER GROUP THERAPY 94.44 11/11/05 RECREATIONAL THERAPY 93.81 10/14/05 Assessment/Plan - Problem List Patient Problems: All Active Problems Bipolar disease, chronic (Acute) F31.9 Depression (Acute) F32.9 HTN (hypertension) (Acute) I10 Parkinson disease (Acute) G20 - Plan Plan: cpm as per psych
[2016-11-21] MEDS: Oxybutynin Chloride 5 mg ER Tab PO SCH (09:41)
[2016-11-21] MEDS: Multivitamin Tab PO SCH (09:42)
--- NOTE | 2016-11-21 10:25 | Progress Notes ---
DATE: 11/21/2016 SUBJECTIVE: Chart reviewed and the patient interviewed. Also discussed the patient's condition with the staff and reviewed records and labs. The patient continued to be extremely irritable and is still confused. The patient also is restless and he still needs redirection. The patient also is complaining of insomnia, but at the same time, he refused to take Seroquel last night, although I explained to the patient that Seroquel helped him to sleep better. Also, is still having difficulty following staff directions. During interview, the patient was standing in the hallway staring at the ceiling and at me. He also seems to be preoccupied and slow in his response and guarded, with difficulty engaging. ASSESSMENT: The patient is still psychotic. TREATMENT PLAN: Encouraged the patient to take Seroquel as prescribed. Also, encouraged him to interact more with peers and with others and continue to work on his psychosis. Also working with outsole caser in regard to discharge plans and placement issue. [facility]# [id number]
[2016-11-22] MEDS: Oxybutynin Chloride 5 mg ER Tab PO SCH ×2 (08:45→08:53)
[2016-11-22] MEDS: Multivitamin Tab PO SCH ×2 (08:45→08:53)
--- NOTE | 2016-11-22 08:49 | General Progress Note ---
Subjective - Review of Systems Events since last encounter: Patient remains the same psychotic denies sob, cp Subjective: awake, resting comfortable nad Objective - Physical Exam Vitals and I&O: Vital Signs Temp 0 F 11/20/16 06:32 Pulse 86 11/20/16 09:22 Resp 20 11/21/16 20:00 BP 130/82 11/19/16 20:38 Pulse Ox 96 11/19/16 20:38 Intake & Output 11/21/16 11/22/16 11/22/16 18:59 06:59 18:59 Intake Total 1000 120 Balance 1000 120 Intake: Oral 1000 120 Other: # Voids 3 3 # Bowel Movements 1 Active Medications: Current Medications Acetaminophen (Tylenol) 650 mg PO Q4HR PRN PRN Reason: Mild Pain / Temp above 100 Stop: 01/13/17 13:24 Last Admin: 11/20/16 04:09 Dose: 650 mg Al Hydrox/Mg Hydrox/Simethicone (Maalox) 30 ml PO Q4HR PRN PRN Reason: GI DISTRESS Stop: 01/13/17 13:24 Carbidopa/Levodopa (Sinemet 25 Mg-250 Mg) 1 tab PO QID [facility] Stop: 01/13/17 16:59 Last Admin: 11/22/16 08:45 Dose: 1 tab Lorazepam (Ativan) 1 mg PO Q4HR PRN; Protocol PRN Reason: Anxiety Stop: 01/13/17 14:16 Last Admin: 11/18/16 20:53 Dose: 1 mg Magnesium Hydroxide (Milk Of Magnesia) 30 ml PO HS PRN PRN Reason: Constipation Multivitamins/Vitamin C (Theragran) 1 tab PO DAILY [facility] Stop: 01/14/17 08:59 Last Admin: 11/22/16 08:45 Dose: 1 tab Oxybutynin Chloride (Ditropan Xl) 5 mg PO DAILY [facility] Stop: 01/14/17 08:59 Last Admin: 11/22/16 08:45 Dose: 5 mg Quetiapine Fumarate (Seroquel) 100 mg PO BID [facility]O PRN Reason: Protocol Stop: 01/19/17 08:59 Last Admin: 11/22/16 08:45 Dose: 100 mg Quetiapine Fumarate (Seroquel) 200 mg PO HS [facility]O PRN Reason: Protocol Stop: 01/19/17 20:59 Last Admin: 08/17/17 20:03 Dose: Not Given Sodium Chloride (Nacl Tab) 2 gm PO BID [facility] Stop: 01/13/17 16:59 Last Admin: 11/22/16 08:45 Dose: 2 gm Zolpidem Tartrate (Ambien) 5 mg PO HS PRN PRN Reason: Insomnia Stop: 01/13/17 13:24 Last Admin: 11/18/16 23:58 Dose: 5 mg General: No acute distress HEENT: PERRLA Cardiovascular: Regular rate, Normal S1 - Procedures Procedures: Procedures Procedure Code Date INDIVID PSYCHOTHERAP NEC 94.39 10/14/05 OTHER GROUP THERAPY 94.44 11/11/05 RECREATIONAL THERAPY 93.81 10/14/05 Assessment/Plan - Problem List Patient Problems: All Active Problems Bipolar disease, chronic (Acute) F31.9 Depression (Acute) F32.9 HTN (hypertension) (Acute) I10 Parkinson disease (Acute) G20 - Plan Plan: cpm as per psych
--- NOTE | 2016-11-22 11:52 | Progress Notes ---
DATE: 11/22/2016 SUBJECTIVE: Chart reviewed and the patient interviewed. Also discussed the patient's condition with the staff and reviewed records and labs. The patient is still extremely irritable and agitated. The patient also is still restless and disheveled. The patient also is still acting bizarre and trying to throw things in the toilet and is having a problem following directions. The patient also refused to take medications because "I want a shot ." The patient also still having mood swings and he is still disheveled. During interview, the patient was talking to himself and he is angry and agitated. Also, is responding to stimuli. ASSESSMENT: The patient is still psychotic and agitated. TREATMENT PLAN: We will continue to monitor her behavior and her condition closely. Also, the patient was asking for an injection and I asked him if he would take Haldol Decanoate injection and the patient agreed. Also, we will start Haldol Decanoate injection every month in a dose of 50 mg daily. Also, continue to work on his agitation and his irritability and also for his compliance with medications and we will continue to follow up. JOB# [id number]
[2016-11-23] MEDS: Multivitamin Tab PO SCH (09:05)
[2016-11-23] MEDS: Oxybutynin Chloride 5 mg ER Tab PO SCH (09:05)
--- NOTE | 2016-11-23 11:37 | General Progress Note ---
Subjective - Review of Systems Events since last encounter: patient with no change still irritable , get agitated Subjective: awake, resting comfortable nad Objective - Physical Exam Vitals and I&O: Vital Signs Temp 0 F 11/20/16 06:32 Pulse 86 11/20/16 09:22 Resp 20 11/21/16 20:00 BP 130/82 11/19/16 20:38 Pulse Ox 96 11/19/16 20:38 Intake & Output 11/22/16 11/23/16 11/23/16 18:59 06:59 18:59 Intake Total 1000 Balance 1000 Intake: Oral 1000 Other: # Voids 3 2 Active Medications: Current Medications Acetaminophen (Tylenol) 650 mg PO Q4HR PRN PRN Reason: Mild Pain / Temp above 100 Stop: 01/13/17 13:24 Last Admin: 11/20/16 04:09 Dose: 650 mg Al Hydrox/Mg Hydrox/Simethicone (Maalox) 30 ml PO Q4HR PRN PRN Reason: GI DISTRESS Stop: 01/13/17 13:24 Carbidopa/Levodopa (Sinemet 25 Mg-250 Mg) 1 tab PO QID [facility] Stop: 01/13/17 16:59 Last Admin: 11/22/16 21:11 Dose: Not Given Haloperidol Decanoate (Haldol Dec) 50 mg IM Q30D [facility]ICARDO PRN Reason: Protocol Stop: 01/21/17 10:59 Last Admin: 11/22/16 11:08 Dose: 50 mg Lorazepam (Ativan) 1 mg PO Q4HR PRN; Protocol PRN Reason: Anxiety Stop: 01/13/17 14:16 Last Admin: 11/18/16 20:53 Dose: 1 mg Magnesium Hydroxide (Milk Of Magnesia) 30 ml PO HS PRN PRN Reason: Constipation Multivitamins/Vitamin C (Theragran) 1 tab PO DAILY [facility] Stop: 01/14/17 08:59 Last Admin: 11/22/16 08:53 Dose: Not Given Oxybutynin Chloride (Ditropan Xl) 5 mg PO DAILY [facility] Stop: 01/14/17 08:59 Last Admin: 11/22/16 08:53 Dose: Not Given Quetiapine Fumarate (Seroquel) 100 mg PO BID [facility] PRN Reason: Protocol Stop: 01/19/17 08:59 Last Admin: 11/22/16 16:18 Dose: Not Given Quetiapine Fumarate (Seroquel) 200 mg PO HS R[facility]O PRN Reason: Protocol Stop: 01/19/17 20:59 Last Admin: 11/22/16 21:11 Dose: Not Given Sodium Chloride (Nacl Tab) 2 gm PO BID [facility] Stop: 01/13/17 16:59 Last Admin: 11/22/16 16:18 Dose: Not Given Zolpidem Tartrate (Ambien) 5 mg PO HS PRN PRN Reason: Insomnia Stop: 01/13/17 13:24 Last Admin: 11/18/16 23:58 Dose: 5 mg General: No acute distress HEENT: PERRLA Cardiovascular: Regular rate, Normal S1 - Procedures Procedures: Procedures Procedure Code Date INDIVID PSYCHOTHERAP NEC 94.39 10/14/05 OTHER GROUP THERAPY 94.44 11/11/05 RECREATIONAL THERAPY 93.81 10/14/05 Assessment/Plan - Problem List Patient Problems: All Active Problems Bipolar disease, chronic (Acute) F31.9 Depression (Acute) F32.9 HTN (hypertension) (Acute) I10 Parkinson disease (Acute) G20 - Plan Plan: cpm as per psych Nutritional Asmnt/Malnutr-PDOC - Dietary Evaluation Malnutrition Findings (Please click <Entered> for more info): Nutritional Asmnt/Malnutrition Start: 11/22/16 10: 08 Text: Status: Complete Freq: Document 11/21/16 17:00 [facility] (Rec: 11/22/16 10:14 [facility] [id number]) Nutritional Asmnt/Malnutrition Patient General Information Diagnosis Chronic paranoid schizophrenia with acute exacerbation Pertinent Medical Hx/Surgical Hx Essential HTN, bipolar disorder, depression, Parkinson's disease Subjective Information Pt is a 52-year-old male admitted on 5150 hold with chief complaint of being dangerous to others. Pt was observed in the Dining Room, being intrusive with others. Pt is a poor historian and unable to cooperative in nutrition interview. Pt appears well nourished with no signs of muscle or fat depletion. Current Diet Order/ Nutrition Support Regular Patient / S.O Can't verbalize diet edu Pertinent Medications Reviewed Pertinent Labs Reviewed Nutritional Hx/Data Height 1.85 m Height (Calculated Centimeters) 185.4 Current Weight (lbs) 75.296 kg Weight (Calculated Kilograms) 75.3 Weight (Calculated Grams) 75977.3 [place] Body Weight 184 % [place] Body Weight 90 Weight Status Approriate GI Symptoms GI Symptoms None Food Allergies No Usual diet at home Regular Skin Integrity/Comment: Scotty Gentile. Skin intact. Current %PO Good (75-100%) Estimated Nutritional Goals BEE in Kcals: Using Current wt Calories/Kcals/Kg Based on current wt 75.5 kg Kcals Calculated 9842-1751 kcals/day (25-30 kcals/kg) Protein: Using Current wt Protein g/kg: Based on current wt 75.5 kg Protein Calculated 76 gm/day (1 gm/kg) Fluid: ml 6445-4611 ml/day (30-35 ml/kg) Nutritional Problem 1. Problem Problem No nutritional problems at this time. Malnutrition Alert Protein-Calorie Malnutrition N/A Is there a minimum of two criteria No selected? Query Text:Check all the applicable criteria. A minimum of two criteria are recommended for diagnosis of either severe or non-severe malnutrition. Malnutrition Related to Morbid Obesity Malnutrition related to morbid obesity No Intervention/Recommendation Comments 1. Continue with current diet as it is adequate to meet estimated nutritional needs. Expected Outcomes/Goals Expected Outcomes/Goals Have pt meet at least 75% of estimated nutritional needs. Stable wt. Physician Parameters for PEM Normal Weight % 90% - 110% (Normal) Body Mass Index (BMI) 19 - 24 (Normal)
--- NOTE | 2016-11-23 20:04 | Progress Notes ---
DATE: 11/23/2016 SUBJECTIVE: Chart reviewed and the patient interviewed. Also discussed the patient's condition with the staff and reviewed records and labs. The patient is still extremely angry and agitated. The patient also is demanding and he is very abusive to staff. The patient also is still having severe mood swings and severe anxiety. He also is still having labile affect is still disheveled and personal hygiene is poor. ASSESSMENT: The patient is still psychotic. TREATMENT PLAN: We will continue monitoring his behavior and his condition closely. Also, the patient refused to take his medications orally and he wants injection. The patient did take Haldol Decanoate injection yesterday, but he is still psychotic and agitated. We will continue monitoring his behavior and we will continue adjusting psychotropic medications and followup. JOB# [id number]
--- NOTE | 2016-11-24 06:57 | General Progress Note ---
Subjective - Review of Systems Events since last encounter: patient continues to have mood swings irritable , aggressive Subjective: awake, resting comfortable nad Objective - Physical Exam Vitals and I&O: Vital Signs Temp 98.4 F 11/23/16 20:57 Pulse 62 11/23/16 20:57 Resp 20 11/23/16 20:57 BP 141/88 11/23/16 20:57 Pulse Ox 98 11/23/16 20:57 Intake & Output 11/23/16 11/23/16 11/24/16 06:59 18:59 06:59 Intake Total 1200 Balance 1200 Intake: Oral 1200 Other: # Voids 2 3 Active Medications: Current Medications Acetaminophen (Tylenol) 650 mg PO Q4HR PRN PRN Reason: Mild Pain / Temp above 100 Stop: 01/13/17 13:24 Last Admin: 11/20/16 04:09 Dose: 650 mg Al Hydrox/Mg Hydrox/Simethicone (Maalox) 30 ml PO Q4HR PRN PRN Reason: GI DISTRESS Stop: 01/13/17 13:24 Carbidopa/Levodopa (Sinemet 25 Mg-250 Mg) 1 tab PO QID [facility] Stop: 01/13/17 16:59 Last Admin: 11/23/16 21:00 Dose: Not Given Haloperidol Decanoate (Haldol Dec) 50 mg IM Q30D [facility] PRN Reason: Protocol Stop: 01/21/17 10:59 Last Admin: 11/22/16 11:08 Dose: 50 mg Lorazepam (Ativan) 1 mg PO Q4HR PRN; Protocol PRN Reason: Anxiety Stop: 01/13/17 14:16 Last Admin: 11/18/16 20:53 Dose: 1 mg Magnesium Hydroxide (Milk Of Magnesia) 30 ml PO HS PRN PRN Reason: Constipation Multivitamins/Vitamin C (Theragran) 1 tab PO DAILY [facility] Stop: 01/14/17 08:59 Last Admin: 11/23/16 09:05 Dose: Not Given Oxybutynin Chloride (Ditropan Xl) 5 mg PO DAILY [facility] Stop: 01/14/17 08:59 Last Admin: 11/23/16 09:05 Dose: Not Given Quetiapine Fumarate (Seroquel) 100 mg PO BID [facility]O PRN Reason: Protocol Stop: 01/19/17 08:59 Last Admin: 11/23/16 17:28 Dose: Not Given Quetiapine Fumarate (Seroquel) 200 mg PO HS RICARDO PRN Reason: Protocol Stop: 01/19/17 20:59 Last Admin: 11/23/16 21:00 Dose: Not Given Sodium Chloride (Nacl Tab) 2 gm PO BID [facility] Stop: 01/13/17 16:59 Last Admin: 11/23/16 17:28 Dose: Not Given Zolpidem Tartrate (Ambien) 5 mg PO HS PRN PRN Reason: Insomnia Stop: 01/13/17 13:24 Last Admin: 11/18/16 23:58 Dose: 5 mg General: No acute distress HEENT: PERRLA Cardiovascular: Regular rate, Normal S1 - Procedures Procedures: Procedures Procedure Code Date INDIVID PSYCHOTHERAP NEC 94.39 10/14/05 OTHER GROUP THERAPY 94.44 11/11/05 RECREATIONAL THERAPY 93.81 10/14/05 Assessment/Plan - Problem List Patient Problems: All Active Problems Bipolar disease, chronic (Acute) F31.9 Depression (Acute) F32.9 HTN (hypertension) (Acute) I10 Parkinson disease (Acute) G20 - Plan Plan: cpm as per psych will monitor Nutritional Asmnt/Malnutr-PDOC - Dietary Evaluation Malnutrition Findings (Please click <Entered> for more info): Nutritional Asmnt/Malnutrition Start: 11/22/16 10: 08 Text: Status: Complete Freq: Document 11/21/16 17:00 [facility] (Rec: 11/22/16 10:14 [facility] [id number]) Nutritional Asmnt/Malnutrition Patient General Information Diagnosis Chronic paranoid schizophrenia with acute exacerbation Pertinent Medical Hx/Surgical Hx Essential HTN, bipolar disorder, depression, Parkinson's disease Subjective Information Pt is a 52-year-old male admitted on 5150 hold with chief complaint of being dangerous to others. Pt was observed in the Dining Room, being intrusive with others. Pt is a poor historian and unable to cooperative in nutrition interview. Pt appears well nourished with no signs of muscle or fat depletion. Current Diet Order/ Nutrition Support Regular Patient / S.O Can't verbalize diet edu Pertinent Medications Reviewed Pertinent Labs Reviewed Nutritional Hx/Data Height 1.85 m Height (Calculated Centimeters) 185.4 Current Weight (lbs) 75.296 kg Weight (Calculated Kilograms) 75.3 Weight (Calculated Grams) 00080.3 [place] Body Weight 184 % [place] Body Weight 90 Weight Status Approriate GI Symptoms GI Symptoms None Food Allergies No Usual diet at home Regular Skin Integrity/Comment: Scotty Gentile. Skin intact. Current %PO Good (75-100%) Estimated Nutritional Goals BEE in Kcals: Using Current wt Calories/Kcals/Kg Based on current wt 75.5 kg Kcals Calculated 8729-3050 kcals/day (25-30 kcals/kg) Protein: Using Current wt Protein g/kg: Based on current wt 75.5 kg Protein Calculated 76 gm/day (1 gm/kg) Fluid: ml 6401-2555 ml/day (30-35 ml/kg) Nutritional Problem 1. Problem Problem No nutritional problems at this time. Malnutrition Alert Protein-Calorie Malnutrition N/A Is there a minimum of two criteria No selected? Query Text:Check all the applicable criteria. A minimum of two criteria are recommended for diagnosis of either severe or non-severe malnutrition. Malnutrition Related to Morbid Obesity Malnutrition related to morbid obesity No Intervention/Recommendation Comments 1. Continue with current diet as it is adequate to meet estimated nutritional needs. Expected Outcomes/Goals Expected Outcomes/Goals Have pt meet at least 75% of estimated nutritional needs. Stable wt. Physician Parameters for PEM Normal Weight % 90% - 110% (Normal) Body Mass Index (BMI) 19 - 24 (Normal)
[2016-11-24] MEDS ORDERED: chlorproMAZINE 25 mg/mL 2mL Amp IM ONE (07:00)
[2016-11-24] MEDS ORDERED: chlorproMAZINE 25 mg/mL 2mL Amp ONE (07:07)
[2016-11-24] MEDS: Multivitamin Tab PO SCH (08:20)
[2016-11-24] MEDS: Oxybutynin Chloride 5 mg ER Tab PO SCH (08:20)
--- NOTE | 2016-11-24 19:02 | Progress Notes ---
DATE: 11/24/2016 SUBJECTIVE: Chart reviewed and the patient interviewed. Also, discussed the patient's condition with the staff and reviewed records and labs. The patient continued to be easily agitated and he is still in angry and in irritable mood. The patient also is still threatening staff and he is still asking for injections and is using p.o. medications. Staff tried to redirect him, but the patient is still in angry and in irritable mood. I discussed with the patient importance of taking his medications orally. Earlier today, the patient had to be given an injection of Haldol, Ativan, and Benadryl to calm him down. He still needs lots of directions and he still needs lots of monitoring. ASSESSMENT: The patient is still agitated and psychotic. TREATMENT PLAN: We will continue monitoring his behavior and his condition closely. Also, continue to work on his compliance with taking medications orally. JOB# [id number]
[2016-11-25] MEDS: Multivitamin Tab PO SCH (16:18)
[2016-11-25] MEDS: Oxybutynin Chloride 5 mg ER Tab PO SCH (16:18)
--- NOTE | 2016-11-26 03:22 | Progress Notes ---
DATE: 11/25/[address] Palomo. Case was discussed with staff of the patient, reviewed records. This is a 66-year-old male who was admitted on 11/14/2016 because of agitation. He [facility] and [facility], attacked staff and other residents for no reason, very angry and irritable. He has been compliant with the medication with no side effects. He looked disheveled. He is on Haldol Decanoate 50 mg every month. He is on Seroquel 100 mg twice a day and 200 mg at bedtime with no sedation, no nausea, no extrapyramidal symptoms. We will continue to work with the patient in group therapy, milieu therapy, and adjust the medication as needed. JOB# [id number]
[2016-11-26] MEDS: Multivitamin Tab PO SCH (08:49)
[2016-11-26] MEDS: Oxybutynin Chloride 5 mg ER Tab PO SCH (08:49)
--- NOTE | 2016-11-26 09:33 | General Progress Note ---
Subjective - Review of Systems Events since last encounter: patient awake, alert no distress admitted for being aggressive with staff at facility Subjective: awake, resting comfortable nad Objective - Physical Exam Vitals and I&O: Vital Signs Temp 98.8 F 11/26/16 06:37 Pulse 94 11/26/16 06:37 Resp 20 11/26/16 06:37 BP 95/79 11/26/16 06:37 Pulse Ox 99 11/26/16 06:37 Intake & Output 11/25/16 11/26/16 11/26/16 18:59 06:59 18:59 Intake Total 2400 480 Balance 2400 480 Intake: Oral 2400 480 Other: # Voids 4 2 # Bowel Movements 1 Active Medications: Current Medications Acetaminophen (Tylenol) 650 mg PO Q4HR PRN PRN Reason: Mild Pain / Temp above 100 Stop: 01/13/17 13:24 Last Admin: 11/20/16 04:09 Dose: 650 mg Al Hydrox/Mg Hydrox/Simethicone (Maalox) 30 ml PO Q4HR PRN PRN Reason: GI DISTRESS Stop: 01/13/17 13:24 Carbidopa/Levodopa (Sinemet 25 Mg-250 Mg) 1 tab PO QID [facility] Stop: 01/13/17 16:59 Last Admin: 11/26/16 08:49 Dose: 1 tab Haloperidol Decanoate (Haldol Dec) 50 mg IM Q30D RICARDO PRN Reason: Protocol Stop: 01/21/17 10:59 Last Admin: 11/22/16 11:08 Dose: 50 mg Lorazepam (Ativan) 1 mg PO Q4HR PRN; Protocol PRN Reason: Anxiety Stop: 01/13/17 14:16 Last Admin: 11/26/16 08:49 Dose: 1 mg Magnesium Hydroxide (Milk Of Magnesia) 30 ml PO HS PRN PRN Reason: Constipation Multivitamins/Vitamin C (Theragran) 1 tab PO DAILY [facility] Stop: 01/14/17 08:59 Last Admin: 11/26/16 08:49 Dose: 1 tab Oxybutynin Chloride (Ditropan Xl) 5 mg PO DAILY [facility] Stop: 01/14/17 08:59 Last Admin: 11/26/16 08:49 Dose: 5 mg Quetiapine Fumarate (Seroquel) 100 mg PO BID [facility] PRN Reason: Protocol Stop: 01/19/17 08:59 Last Admin: 11/26/16 08:49 Dose: 100 mg Quetiapine Fumarate (Seroquel) 200 mg PO HS [facility] PRN Reason: Protocol Stop: 01/19/17 20:59 Last Admin: 11/25/16 21:03 Dose: 200 mg Sodium Chloride (Nacl Tab) 2 gm PO BID [facility] Stop: 01/13/17 16:59 Last Admin: 11/26/16 08:49 Dose: 2 gm Zolpidem Tartrate (Ambien) 5 mg PO HS PRN PRN Reason: Insomnia Stop: 01/13/17 13:24 Last Admin: 11/25/16 22:56 Dose: 5 mg General: No acute distress HEENT: PERRLA Cardiovascular: Regular rate, Normal S1 - Procedures Procedures: Procedures Procedure Code Date INDIVID PSYCHOTHERAP NEC 94.39 10/14/05 OTHER GROUP THERAPY 94.44 11/11/05 RECREATIONAL THERAPY 93.81 10/14/05 Assessment/Plan - Problem List Patient Problems: All Active Problems Bipolar disease, chronic (Acute) F31.9 Depression (Acute) F32.9 HTN (hypertension) (Acute) I10 Parkinson disease (Acute) G20 - Plan Plan: cpm as per psych will monitor Nutritional Asmnt/Malnutr-PDOC - Dietary Evaluation Malnutrition Findings (Please click <Entered> for more info): Nutritional Asmnt/Malnutrition Start: 11/22/16 10: 08 Text: Status: Complete Freq: Document 11/21/16 17:00 [facility] (Rec: 11/22/16 10:14 [facility] [id number]) Nutritional Asmnt/Malnutrition Patient General Information Diagnosis Chronic paranoid schizophrenia with acute exacerbation Pertinent Medical Hx/Surgical Hx Essential HTN, bipolar disorder, depression, Parkinson's disease Subjective Information Pt is a 52-year-old male admitted on 5150 hold with chief complaint of being dangerous to others. Pt was observed in the Dining Room, being intrusive with others. Pt is a poor historian and unable to cooperative in nutrition interview. Pt appears well nourished with no signs of muscle or fat depletion. Current Diet Order/ Nutrition Support Regular Patient / S.O Can't verbalize diet edu Pertinent Medications Reviewed Pertinent Labs Reviewed Nutritional Hx/Data Height 1.85 m Height (Calculated Centimeters) 185.4 Current Weight (lbs) 75.296 kg Weight (Calculated Kilograms) 75.3 Weight (Calculated Grams) 60423.3 [place] Body Weight 184 % [place] Body Weight 90 Weight Status Approriate GI Symptoms GI Symptoms None Food Allergies No Usual diet at home Regular Skin Integrity/Comment: Scotty Gentile. Skin intact. Current %PO Good (75-100%) Estimated Nutritional Goals BEE in Kcals: Using Current wt Calories/Kcals/Kg Based on current wt 75.5 kg Kcals Calculated 2198-3336 kcals/day (25-30 kcals/kg) Protein: Using Current wt Protein g/kg: Based on current wt 75.5 kg Protein Calculated 76 gm/day (1 gm/kg) Fluid: ml 1365-7115 ml/day (30-35 ml/kg) Nutritional Problem 1. Problem Problem No nutritional problems at this time. Malnutrition Alert Protein-Calorie Malnutrition N/A Is there a minimum of two criteria No selected? Query Text:Check all the applicable criteria. A minimum of two criteria are recommended for diagnosis of either severe or non-severe malnutrition. Malnutrition Related to Morbid Obesity Malnutrition related to morbid obesity No Intervention/Recommendation Comments 1. Continue with current diet as it is adequate to meet estimated nutritional needs. Expected Outcomes/Goals Expected Outcomes/Goals Have pt meet at least 75% of estimated nutritional needs. Stable wt. Physician Parameters for PEM Normal Weight % 90% - 110% (Normal) Body Mass Index (BMI) 19 - 24 (Normal)
--- NOTE | 2016-11-26 15:19 | Progress Notes ---
DATE: 11/26/2016 Case was discussed with staff of the patient, reviewed records. The patient continues to be easily agitated, continues to look angry, irritable, disheveled, continues to have episodes discussed with staff, asking for injections ____ medication. Continues to need redirection, angry, irritable, poor insight and unpredictable. He has been compliant with the medication with no side effects, no sedation, no nausea, no extrapyramidal symptoms. We will continue to work with the patient in group therapy, milieu therapy, adjust medication as needed. JOB# [id number]
[2016-11-27] MEDS: Oxybutynin Chloride 5 mg ER Tab PO SCH (09:50)
[2016-11-27] MEDS: Multivitamin Tab PO SCH (09:50)
--- NOTE | 2016-11-27 14:35 | General Progress Note ---
Subjective - Review of Systems Events since last encounter: patient continues to be irritable easily getting angry with staff Subjective: awake, resting comfortable nad Objective - Physical Exam Vitals and I&O: Vital Signs Temp 98.5 F 11/27/16 05:23 Pulse 87 11/27/16 05:23 Resp 20 11/27/16 05:23 BP 120/85 11/27/16 05:23 Pulse Ox 96 11/27/16 05:23 Intake & Output 11/26/16 11/27/16 11/27/16 18:59 06:59 18:59 Intake Total 2400 480 Balance 2400 480 Intake: Oral 2400 480 Other: # Voids 4 3 # Bowel Movements 0 0 Active Medications: Current Medications Acetaminophen (Tylenol) 650 mg PO Q4HR PRN PRN Reason: Mild Pain / Temp above 100 Stop: 01/13/17 13:24 Last Admin: 11/20/16 04:09 Dose: 650 mg Al Hydrox/Mg Hydrox/Simethicone (Maalox) 30 ml PO Q4HR PRN PRN Reason: GI DISTRESS Stop: 01/13/17 13:24 Carbidopa/Levodopa (Sinemet 25 Mg-250 Mg) 1 tab PO QID [facility] Stop: 01/13/17 16:59 Last Admin: 11/27/16 09:50 Dose: 1 tab Haloperidol Decanoate (Haldol Dec) 50 mg IM Q30D RICARDO PRN Reason: Protocol Stop: 01/21/17 10:59 Last Admin: 11/22/16 11:08 Dose: 50 mg Lorazepam (Ativan) 1 mg PO Q4HR PRN; Protocol PRN Reason: Anxiety Stop: 01/13/17 14:16 Last Admin: 11/26/16 08:49 Dose: 1 mg Magnesium Hydroxide (Milk Of Magnesia) 30 ml PO HS PRN PRN Reason: Constipation Multivitamins/Vitamin C (Theragran) 1 tab PO DAILY [facility] Stop: 01/14/17 08:59 Last Admin: 11/27/16 09:50 Dose: 1 tab Oxybutynin Chloride (Ditropan Xl) 5 mg PO DAILY [facility] Stop: 01/14/17 08:59 Last Admin: 11/27/16 09:50 Dose: 5 mg Quetiapine Fumarate (Seroquel) 100 mg PO BID [facility] PRN Reason: Protocol Stop: 01/19/17 08:59 Last Admin: 11/27/16 09:50 Dose: 100 mg Quetiapine Fumarate (Seroquel) 200 mg PO HS [facility]O PRN Reason: Protocol Stop: 01/19/17 20:59 Last Admin: 11/26/16 20:39 Dose: 200 mg Sodium Chloride (Nacl Tab) 2 gm PO BID [facility] Stop: 01/13/17 16:59 Last Admin: 11/27/16 09:50 Dose: 2 gm Zolpidem Tartrate (Ambien) 5 mg PO HS PRN PRN Reason: Insomnia Stop: 01/13/17 13:24 Last Admin: 11/26/16 20:39 Dose: 5 mg General: No acute distress HEENT: PERRLA Cardiovascular: Regular rate, Normal S1 - Procedures Procedures: Procedures Procedure Code Date INDIVID PSYCHOTHERAP NEC 94.39 10/14/05 OTHER GROUP THERAPY 94.44 11/11/05 RECREATIONAL THERAPY 93.81 10/14/05 Assessment/Plan - Problem List Patient Problems: All Active Problems Bipolar disease, chronic (Acute) F31.9 Depression (Acute) F32.9 HTN (hypertension) (Acute) I10 Parkinson disease (Acute) G20 - Plan Plan: cpm as per psych will monitor Nutritional Asmnt/Malnutr-PDOC - Dietary Evaluation Malnutrition Findings (Please click <Entered> for more info): Nutritional Asmnt/Malnutrition Start: 11/22/16 10: 08 Text: Status: Complete Freq: Document 11/21/16 17:00 [facility] (Rec: 11/22/16 10:14 [facility] [id number]) Nutritional Asmnt/Malnutrition Patient General Information Diagnosis Chronic paranoid schizophrenia with acute exacerbation Pertinent Medical Hx/Surgical Hx Essential HTN, bipolar disorder, depression, Parkinson's disease Subjective Information Pt is a 52-year-old male admitted on 5150 hold with chief complaint of being dangerous to others. Pt was observed in the Dining Room, being intrusive with others. Pt is a poor historian and unable to cooperative in nutrition interview. Pt appears well nourished with no signs of muscle or fat depletion. Current Diet Order/ Nutrition Support Regular Patient / S.O Can't verbalize diet edu Pertinent Medications Reviewed Pertinent Labs Reviewed Nutritional Hx/Data Height 1.85 m Height (Calculated Centimeters) 185.4 Current Weight (lbs) 75.296 kg Weight (Calculated Kilograms) 75.3 Weight (Calculated Grams) 03626.3 [place] Body Weight 184 % [place] Body Weight 90 Weight Status Approriate GI Symptoms GI Symptoms None Food Allergies No Usual diet at home Regular Skin Integrity/Comment: Scotty Gentile. Skin intact. Current %PO Good (75-100%) Estimated Nutritional Goals BEE in Kcals: Using Current wt Calories/Kcals/Kg Based on current wt 75.5 kg Kcals Calculated 2201-0202 kcals/day (25-30 kcals/kg) Protein: Using Current wt Protein g/kg: Based on current wt 75.5 kg Protein Calculated 76 gm/day (1 gm/kg) Fluid: ml 6012-0866 ml/day (30-35 ml/kg) Nutritional Problem 1. Problem Problem No nutritional problems at this time. Malnutrition Alert Protein-Calorie Malnutrition N/A Is there a minimum of two criteria No selected? Query Text:Check all the applicable criteria. A minimum of two criteria are recommended for diagnosis of either severe or non-severe malnutrition. Malnutrition Related to Morbid Obesity Malnutrition related to morbid obesity No Intervention/Recommendation Comments 1. Continue with current diet as it is adequate to meet estimated nutritional needs. Expected Outcomes/Goals Expected Outcomes/Goals Have pt meet at least 75% of estimated nutritional needs. Stable wt. Physician Parameters for PEM Normal Weight % 90% - 110% (Normal) Body Mass Index (BMI) 19 - 24 (Normal)
--- NOTE | 2016-11-27 19:10 | Progress Notes ---
DATE: 11/27/2016 SUBJECTIVE: Chart reviewed and the patient interviewed. Also discussed the patient's condition with the staff and reviewed records and labs. The patient continued to be extremely irritable and he is still in angry mood. The patient also is still paranoid and suspicious. Also, he is refusing to take medications p.o. and wants his medications to be given IM. Otherwise, personal hygiene is slightly improved. ASSESSMENT: The patient is still psychotic. TREATMENT PLAN: We will continue to monitor his behavior and his condition closely. Also, continue to work on his compliance medications orally and we will continue to follow up. JOB# [id number]
[2016-11-28] MEDS: Multivitamin Tab PO SCH (08:30)
[2016-11-28] MEDS: Oxybutynin Chloride 5 mg ER Tab PO SCH (08:30)
--- NOTE | 2016-11-28 10:21 | General Progress Note ---
Subjective - Review of Systems Events since last encounter: no change from yesterday Subjective: awake, resting comfortable nad Objective - Physical Exam Vitals and I&O: Vital Signs Temp 97.2 F 11/28/16 06:44 Pulse 66 11/28/16 06:44 Resp 19 11/28/16 06:44 BP 142/83 11/28/16 06:44 Pulse Ox 98 11/28/16 06:44 Intake & Output 11/27/16 11/28/16 11/28/16 18:59 06:59 18:59 Intake Total 900 120 Balance 900 120 Intake: Oral 900 120 Other: # Voids 4 3 # Bowel Movements 1 Active Medications: Current Medications Acetaminophen (Tylenol) 650 mg PO Q4HR PRN PRN Reason: Mild Pain / Temp above 100 Stop: 01/13/17 13:24 Last Admin: 11/20/16 04:09 Dose: 650 mg Al Hydrox/Mg Hydrox/Simethicone (Maalox) 30 ml PO Q4HR PRN PRN Reason: GI DISTRESS Stop: 01/13/17 13:24 Carbidopa/Levodopa (Sinemet 25 Mg-250 Mg) 1 tab PO QID [facility] Stop: 01/13/17 16:59 Last Admin: 11/28/16 08:30 Dose: 1 tab Docusate Sodium (Colace) 200 mg PO DAILY [facility] Stop: 01/27/17 08:59 Last Admin: 11/28/16 08:29 Dose: 200 mg Haloperidol Decanoate (Haldol Dec) 50 mg IM Q30D [facility]O PRN Reason: Protocol Stop: 01/21/17 10:59 Last Admin: 11/22/16 11:08 Dose: 50 mg Lorazepam (Ativan) 1 mg PO Q4HR PRN; Protocol PRN Reason: Anxiety Stop: 01/13/17 14:16 Last Admin: 11/28/16 08:30 Dose: 1 mg Magnesium Hydroxide (Milk Of Magnesia) 30 ml PO HS PRN PRN Reason: Constipation Multivitamins/Vitamin C (Theragran) 1 tab PO DAILY [facility] Stop: 01/14/17 08:59 Last Admin: 11/28/16 08:30 Dose: 1 tab Oxybutynin Chloride (Ditropan Xl) 5 mg PO DAILY [facility] Stop: 01/14/17 08:59 Last Admin: 11/28/16 08:30 Dose: 5 mg Quetiapine Fumarate (Seroquel) 100 mg PO BID [facility] PRN Reason: Protocol Stop: 01/19/17 08:59 Last Admin: 11/28/16 08:29 Dose: 100 mg Quetiapine Fumarate (Seroquel) 200 mg PO HS [facility] PRN Reason: Protocol Stop: 01/19/17 20:59 Last Admin: 11/27/16 20:33 Dose: Not Given Sodium Chloride (Nacl Tab) 2 gm PO BID [facility] Stop: 01/13/17 16:59 Last Admin: 11/28/16 08:29 Dose: 2 gm Zolpidem Tartrate (Ambien) 5 mg PO HS PRN PRN Reason: Insomnia Stop: 01/13/17 13:24 Last Admin: 11/26/16 20:39 Dose: 5 mg General: No acute distress HEENT: PERRLA Cardiovascular: Regular rate, Normal S1 - Procedures Procedures: Procedures Procedure Code Date INDIVID PSYCHOTHERAP NEC 94.39 10/14/05 OTHER GROUP THERAPY 94.44 11/11/05 RECREATIONAL THERAPY 93.81 10/14/05 Assessment/Plan - Problem List Patient Problems: All Active Problems Bipolar disease, chronic (Acute) F31.9 Depression (Acute) F32.9 HTN (hypertension) (Acute) I10 Parkinson disease (Acute) G20 - Plan Plan: cpm as per psych will monitor Nutritional Asmnt/Malnutr-PDOC - Dietary Evaluation Malnutrition Findings (Please click <Entered> for more info): Nutritional Asmnt/Malnutrition Start: 11/22/16 10: 08 Text: Status: Complete Freq: Document 11/21/16 17:00 [facility] (Rec: 11/22/16 10:14 [facility] [id number]) Nutritional Asmnt/Malnutrition Patient General Information Diagnosis Chronic paranoid schizophrenia with acute exacerbation Pertinent Medical Hx/Surgical Hx Essential HTN, bipolar disorder, depression, Parkinson's disease Subjective Information Pt is a 52-year-old male admitted on 5150 hold with chief complaint of being dangerous to others. Pt was observed in the Dining Room, being intrusive with others. Pt is a poor historian and unable to cooperative in nutrition interview. Pt appears well nourished with no signs of muscle or fat depletion. Current Diet Order/ Nutrition Support Regular Patient / S.O Can't verbalize diet edu Pertinent Medications Reviewed Pertinent Labs Reviewed Nutritional Hx/Data Height 1.85 m Height (Calculated Centimeters) 185.4 Current Weight (lbs) 75.296 kg Weight (Calculated Kilograms) 75.3 Weight (Calculated Grams) 03031.3 [place] Body Weight 184 % [place] Body Weight 90 Weight Status Approriate GI Symptoms GI Symptoms None Food Allergies No Usual diet at home Regular Skin Integrity/Comment: Scotty Gentile. Skin intact. Current %PO Good (75-100%) Estimated Nutritional Goals BEE in Kcals: Using Current wt Calories/Kcals/Kg Based on current wt 75.5 kg Kcals Calculated 3621-3528 kcals/day (25-30 kcals/kg) Protein: Using Current wt Protein g/kg: Based on current wt 75.5 kg Protein Calculated 76 gm/day (1 gm/kg) Fluid: ml 3399-1717 ml/day (30-35 ml/kg) Nutritional Problem 1. Problem Problem No nutritional problems at this time. Malnutrition Alert Protein-Calorie Malnutrition N/A Is there a minimum of two criteria No selected? Query Text:Check all the applicable criteria. A minimum of two criteria are recommended for diagnosis of either severe or non-severe malnutrition. Malnutrition Related to Morbid Obesity Malnutrition related to morbid obesity No Intervention/Recommendation Comments 1. Continue with current diet as it is adequate to meet estimated nutritional needs. Expected Outcomes/Goals Expected Outcomes/Goals Have pt meet at least 75% of estimated nutritional needs. Stable wt. Physician Parameters for PEM Normal Weight % 90% - 110% (Normal) Body Mass Index (BMI) 19 - 24 (Normal)
--- NOTE | 2016-11-29 03:42 | Progress Notes ---
DATE: 11/28/[address] Palomo. Case was discussed with staff of the patient, reviewed records. The patient continues to be agitated. The staff believes that this is how he usually is. They do not expect him to improve; however, when I talked to him today, he said he is complaining of flu-like symptoms. He continues to have poor insight, unpredictable and impulsive. I will be increasing his Seroquel dose at bedtime to 250. He is on 200 mg a day and also states ____. We will continue to work with the patient in group therapy, milieu therapy, and adjust the medications as needed. JOB# [id number]
[2016-11-29] MEDS: Oxybutynin Chloride 5 mg ER Tab PO SCH (08:55)
[2016-11-29] MEDS: Multivitamin Tab PO SCH (08:55)
--- NOTE | 2016-11-29 13:13 | General Progress Note ---
Subjective - Review of Systems Events since last encounter: patient still agitated no change Subjective: awake, resting comfortable nad Objective - Physical Exam Vitals and I&O: Vital Signs Temp 97.6 F 11/28/16 14:00 Pulse 91 11/28/16 14:00 Resp 20 11/28/16 14:00 BP 103/70 11/28/16 14:00 Pulse Ox 97 11/28/16 14:00 Intake & Output 11/28/16 11/29/16 11/29/16 18:59 06:59 18:59 Intake Total 1000 Balance 1000 Weight (lbs) 73.981 kg Intake: Oral 1000 Other: # Voids 4 # Bowel Movements 1 Active Medications: Current Medications Acetaminophen (Tylenol) 650 mg PO Q4HR PRN PRN Reason: Mild Pain / Temp above 100 Stop: 01/13/17 13:24 Last Admin: 11/29/16 02:20 Dose: 650 mg Al Hydrox/Mg Hydrox/Simethicone (Maalox) 30 ml PO Q4HR PRN PRN Reason: GI DISTRESS Stop: 01/13/17 13:24 Carbidopa/Levodopa (Sinemet 25 Mg-250 Mg) 1 tab PO QID [facility] Stop: 01/13/17 16:59 Last Admin: 11/29/16 08:55 Dose: 1 tab Docusate Sodium (Colace) 200 mg PO DAILY [facility] Stop: 01/27/17 08:59 Last Admin: 11/29/16 08:54 Dose: 200 mg Haloperidol Decanoate (Haldol Dec) 50 mg IM Q30D [facility] PRN Reason: Protocol Stop: 01/21/17 10:59 Last Admin: 11/22/16 11:08 Dose: 50 mg Lorazepam (Ativan) 1 mg PO Q4HR PRN; Protocol PRN Reason: Anxiety Stop: 01/13/17 14:16 Last Admin: 11/28/16 16:58 Dose: 1 mg Magnesium Hydroxide (Milk Of Magnesia) 30 ml PO HS PRN PRN Reason: Constipation Multivitamins/Vitamin C (Theragran) 1 tab PO DAILY [facility] Stop: 01/14/17 08:59 Last Admin: 11/29/16 08:55 Dose: 1 tab Oxybutynin Chloride (Ditropan Xl) 5 mg PO DAILY [facility] Stop: 01/14/17 08:59 Last Admin: 11/29/16 08:55 Dose: 5 mg Quetiapine Fumarate (Seroquel) 100 mg PO BID [facility] PRN Reason: Protocol Stop: 01/19/17 08:59 Last Admin: 11/29/16 08:55 Dose: 100 mg Quetiapine Fumarate 200 mg/ (Quetiapine Fumarate 50 mg) 250 mg PO HS [facility] Stop: 01/27/17 20:59 Last Admin: 11/28/16 21:07 Dose: 250 mg Sodium Chloride (Nacl Tab) 2 gm PO BID [facility] Stop: 01/13/17 16:59 Last Admin: 11/29/16 08:53 Dose: 2 gm Zolpidem Tartrate (Ambien) 5 mg PO HS PRN PRN Reason: Insomnia Stop: 01/13/17 13:24 Last Admin: 11/26/16 20:39 Dose: 5 mg General: No acute distress HEENT: PERRLA Cardiovascular: Regular rate, Normal S1 - Procedures Procedures: Procedures Procedure Code Date INDIVID PSYCHOTHERAP NEC 94.39 10/14/05 OTHER GROUP THERAPY 94.44 11/11/05 RECREATIONAL THERAPY 93.81 10/14/05 Assessment/Plan - Problem List Patient Problems: All Active Problems Bipolar disease, chronic (Acute) F31.9 Depression (Acute) F32.9 HTN (hypertension) (Acute) I10 Parkinson disease (Acute) G20 - Plan Plan: cpm as per psych will monitor Nutritional Asmnt/Malnutr-PDOC - Dietary Evaluation Malnutrition Findings (Please click <Entered> for more info): Nutritional Asmnt/Malnutrition Start: 11/22/16 10: 08 Text: Status: Complete Freq: Document 11/21/16 17:00 [facility] (Rec: 11/22/16 10:14 [facility] [id number]) Nutritional Asmnt/Malnutrition Patient General Information Diagnosis Chronic paranoid schizophrenia with acute exacerbation Pertinent Medical Hx/Surgical Hx Essential HTN, bipolar disorder, depression, Parkinson's disease Subjective Information Pt is a 52-year-old male admitted on 5150 hold with chief complaint of being dangerous to others. Pt was observed in the Dining Room, being intrusive with others. Pt is a poor historian and unable to cooperative in nutrition interview. Pt appears well nourished with no signs of muscle or fat depletion. Current Diet Order/ Nutrition Support Regular Patient / S.O Can't verbalize diet edu Pertinent Medications Reviewed Pertinent Labs Reviewed Nutritional Hx/Data Height 1.85 m Height (Calculated Centimeters) 185.4 Current Weight (lbs) 75.296 kg Weight (Calculated Kilograms) 75.3 Weight (Calculated Grams) 10576.3 [place] Body Weight 184 % [place] Body Weight 90 Weight Status Approriate GI Symptoms GI Symptoms None Food Allergies No Usual diet at home Regular Skin Integrity/Comment: Scotty 19. Skin intact. Current %PO Good (75-100%) Estimated Nutritional Goals BEE in Kcals: Using Current wt Calories/Kcals/Kg Based on current wt 75.5 kg Kcals Calculated 5276-2733 kcals/day (25-30 kcals/kg) Protein: Using Current wt Protein g/kg: Based on current wt 75.5 kg Protein Calculated 76 gm/day (1 gm/kg) Fluid: ml 7062-2889 ml/day (30-35 ml/kg) Nutritional Problem 1. Problem Problem No nutritional problems at this time. Malnutrition Alert Protein-Calorie Malnutrition N/A Is there a minimum of two criteria No selected? Query Text:Check all the applicable criteria. A minimum of two criteria are recommended for diagnosis of either severe or non-severe malnutrition. Malnutrition Related to Morbid Obesity Malnutrition related to morbid obesity No Intervention/Recommendation Comments 1. Continue with current diet as it is adequate to meet estimated nutritional needs. Expected Outcomes/Goals Expected Outcomes/Goals Have pt meet at least 75% of estimated nutritional needs. Stable wt. Physician Parameters for PEM Normal Weight % 90% - 110% (Normal) Body Mass Index (BMI) 19 - 24 (Normal)
--- NOTE | 2016-11-30 05:51 | Progress Notes ---
DATE: 11/29/2016 Case was discussed with staff of the patient, reviewed records. The patient reports he is feeling a little bit better today, but yesterday he complained to me of flu symptoms. He continues to be agitated at times. He continues to be gravely disabled and needing redirection, demanding at times. He is unpredictable and impulsive. He is compliant with the medication with no side effects. No sedation, no nausea and no extrapyramidal symptoms. I did increase his Seroquel dose yesterday at bedtime to 250 mg and also he is on 100 mg twice a day with the hope that will help his sleep better and Dr. Palomo already gave him Haldol Decanoate. We will continue to work with the patient in group therapy, milieu therapy and adjust the medications as needed. JOB# [id number]
[2016-11-30] MEDS: Oxybutynin Chloride 5 mg ER Tab PO SCH (08:09)
[2016-11-30] MEDS: Multivitamin Tab PO SCH (08:09)
--- NOTE | 2016-11-30 10:44 | Progress Notes ---
DATE: 11/30/2016 SUBJECTIVE: The patient was seen in his room, lying on the bed. The patient is a poor historian due to medical condition, episodes of irritability and angry mood, but no aggressive behaviors according to the nurses. Otherwise, the patient appears to be in no acute distress. OBJECTIVE: VITAL SIGNS: Temperature 98.1, heart rate of 91, blood pressure 135/90, respirations 90, 97% room air. HEENT: Head is atraumatic, normocephalic. Eyes: Bilateral conjunctivae are clear. Bilateral pupils are equally round and reactive. NECK: Supple. No JVD. CARDIOVASCULAR: S1 and S2, without murmur. PULMONARY: Clear to auscultation. GASTROINTESTINAL: Soft and nontender without guarding. Positive bowel sounds. MUSCULOSKELETAL: No edema, no clubbing, no cyanosis noted. ASSESSMENT: 1. Psychosis. 2. Parkinson's disease. 3. Anxiety. 4. Osteoarthritis. 5. Overactive bladder. 6. Insomnia. PLAN: We will continue to keep the patient inpatient in Psychiatric Unit. We will follow up with a psychiatrist to monitor the patient's condition and behavior. Treatment plans were discussed with the patient's nurse. Treatment plans were discussed with Dr. Leone. JOB# [id number]
[2016-11-30] MEDS ORDERED: Haloperidol Lactate 5 mg/mL 1mL Vial IM ONE (16:16)
[2016-11-30] MEDS ORDERED: Haloperidol Lactate 5 mg/mL 1mL Vial ONE (16:19)
--- NOTE | 2016-12-01 02:51 | Progress Notes ---
DATE: 11/30/2016 Case was discussed with staff of the patient. The patient continues to be irritable, continues to be intrusive, unable to make safe plan for self-care, refusing care at a lower level of care. Unable to participate and make reasonable decisions, easily agitated. Multiple somatic complaints. He is compliant with the medication with no side effects, no sedation, no nausea. He reports he can hear voices, but not command hallucinations. I did increase his Seroquel dose yesterday to 250 with no side effects, no sedation, no nausea, no extrapyramidal symptoms. We will continue the patient in group therapy, milieu therapy, adjust medication as needed. JOB# [id number]
[2016-12-01] MEDS: Oxybutynin Chloride 5 mg ER Tab PO SCH (08:11)
[2016-12-01] MEDS: Multivitamin Tab PO SCH (08:11)
--- NOTE | 2016-12-01 11:18 | General Progress Note ---
Subjective - Review of Systems Events since last encounter: patient is irritable, gets angry easily no distress denies chest pain Subjective: awake, resting comfortable nad Objective - Physical Exam Vitals and I&O: Vital Signs Temp 97.8 F 12/01/16 06:31 Pulse 85 12/01/16 06:31 Resp 20 12/01/16 06:31 BP 131/77 12/01/16 06:31 Pulse Ox 97 12/01/16 06:31 Intake & Output 11/30/16 12/01/16 12/01/16 18:59 06:59 18:59 Intake Total 2400 120 Balance 2400 120 Intake: Oral 2400 120 Other: # Voids 5 4 # Bowel Movements 0 Active Medications: Current Medications Acetaminophen (Tylenol) 650 mg PO Q4HR PRN PRN Reason: Mild Pain / Temp above 100 Stop: 01/13/17 13:24 Last Admin: 11/29/16 02:20 Dose: 650 mg Al Hydrox/Mg Hydrox/Simethicone (Maalox) 30 ml PO Q4HR PRN PRN Reason: GI DISTRESS Stop: 01/13/17 13:24 Carbidopa/Levodopa (Sinemet 25 Mg-250 Mg) 1 tab PO QID [facility] Stop: 01/13/17 16:59 Last Admin: 12/01/16 08:11 Dose: 1 tab Docusate Sodium (Colace) 200 mg PO DAILY [facility] Stop: 01/27/17 08:59 Last Admin: 12/01/16 08:11 Dose: 200 mg Haloperidol Decanoate (Haldol Dec) 50 mg IM Q30D [facility] PRN Reason: Protocol Stop: 01/21/17 10:59 Last Admin: 11/22/16 11:08 Dose: 50 mg Lorazepam (Ativan) 1 mg PO Q4HR PRN; Protocol PRN Reason: Anxiety Stop: 01/13/17 14:16 Last Admin: 12/01/16 08:11 Dose: 1 mg Magnesium Hydroxide (Milk Of Magnesia) 30 ml PO HS PRN PRN Reason: Constipation Multivitamins/Vitamin C (Theragran) 1 tab PO DAILY [facility] Stop: 01/14/17 08:59 Last Admin: 12/01/16 08:11 Dose: 1 tab Oxybutynin Chloride (Ditropan Xl) 5 mg PO DAILY [facility] Stop: 01/14/17 08:59 Last Admin: 12/01/16 08:11 Dose: 5 mg Quetiapine Fumarate (Seroquel) 100 mg PO BID [facility] PRN Reason: Protocol Stop: 01/19/17 08:59 Last Admin: 12/01/16 08:11 Dose: 100 mg Quetiapine Fumarate 200 mg/ (Quetiapine Fumarate 50 mg) 250 mg PO HS [facility] Stop: 01/27/17 20:59 Last Admin: 11/30/16 20:29 Dose: 250 mg Sodium Chloride (Nacl Tab) 2 gm PO BID [facility] Stop: 01/13/17 16:59 Last Admin: 12/01/16 08:11 Dose: 2 gm Zolpidem Tartrate (Ambien) 5 mg PO HS PRN PRN Reason: Insomnia Stop: 01/13/17 13:24 Last Admin: 11/30/16 20:29 Dose: 5 mg General: No acute distress HEENT: PERRLA Cardiovascular: Regular rate, Normal S1 - Procedures Procedures: Procedures Procedure Code Date INDIVID PSYCHOTHERAP NEC 94.39 10/14/05 OTHER GROUP THERAPY 94.44 11/11/05 RECREATIONAL THERAPY 93.81 10/14/05 Assessment/Plan - Problem List Patient Problems: All Active Problems Bipolar disease, chronic (Acute) F31.9 Depression (Acute) F32.9 HTN (hypertension) (Acute) I10 Parkinson disease (Acute) G20 - Plan Plan: cpm as per psych will monitor Nutritional Asmnt/Malnutr-PDOC - Dietary Evaluation Malnutrition Findings (Please click <Entered> for more info): Nutritional Asmnt/Malnutrition Start: 11/22/16 10: 08 Text: Status: Complete Freq: Document 11/21/16 17:00 [facility] (Rec: 11/22/16 10:14 [facility] [id number]) Nutritional Asmnt/Malnutrition Patient General Information Diagnosis Chronic paranoid schizophrenia with acute exacerbation Pertinent Medical Hx/Surgical Hx Essential HTN, bipolar disorder, depression, Parkinson's disease Subjective Information Pt is a 52-year-old male admitted on 5150 hold with chief complaint of being dangerous to others. Pt was observed in the Dining Room, being intrusive with others. Pt is a poor historian and unable to cooperative in nutrition interview. Pt appears well nourished with no signs of muscle or fat depletion. Current Diet Order/ Nutrition Support Regular Patient / S.O Can't verbalize diet edu Pertinent Medications Reviewed Pertinent Labs Reviewed Nutritional Hx/Data Height 1.85 m Height (Calculated Centimeters) 185.4 Current Weight (lbs) 75.296 kg Weight (Calculated Kilograms) 75.3 Weight (Calculated Grams) 49064.3 [place] Body Weight 184 % [place] Body Weight 90 Weight Status Approriate GI Symptoms GI Symptoms None Food Allergies No Usual diet at home Regular Skin Integrity/Comment: Scotty 19. Skin intact. Current %PO Good (75-100%) Estimated Nutritional Goals BEE in Kcals: Using Current wt Calories/Kcals/Kg Based on current wt 75.5 kg Kcals Calculated 4745-2577 kcals/day (25-30 kcals/kg) Protein: Using Current wt Protein g/kg: Based on current wt 75.5 kg Protein Calculated 76 gm/day (1 gm/kg) Fluid: ml 6617-8170 ml/day (30-35 ml/kg) Nutritional Problem 1. Problem Problem No nutritional problems at this time. Malnutrition Alert Protein-Calorie Malnutrition N/A Is there a minimum of two criteria No selected? Query Text:Check all the applicable criteria. A minimum of two criteria are recommended for diagnosis of either severe or non-severe malnutrition. Malnutrition Related to Morbid Obesity Malnutrition related to morbid obesity No Intervention/Recommendation Comments 1. Continue with current diet as it is adequate to meet estimated nutritional needs. Expected Outcomes/Goals Expected Outcomes/Goals Have pt meet at least 75% of estimated nutritional needs. Stable wt. Physician Parameters for PEM Normal Weight % 90% - 110% (Normal) Body Mass Index (BMI) 19 - 24 (Normal)
--- NOTE | 2016-12-01 19:28 | Progress Notes ---
DATE: 12/01/2016 Case discussed with staff and the patient, reviewed records. The patient continues to have poor insight, unpredictable, impulsive, needing redirection. He tolerated the increase in medication with no side effects, no sedation, no nausea, no extrapyramidal symptoms. Sleeping better, eating better, still having multiple somatic complaints and tolerating increase in Seroquel and will continue with the patient in group therapy and adjust medication as needed. JOB# [id number]
[2016-12-02] MEDS: Oxybutynin Chloride 5 mg ER Tab PO SCH (08:32)
[2016-12-02] MEDS: Multivitamin Tab PO SCH (08:32)
--- NOTE | 2016-12-02 12:55 | General Progress Note ---
Subjective - Review of Systems Events since last encounter: patient awake no distress Subjective: awake, resting comfortable nad Objective - Physical Exam Vitals and I&O: Vital Signs Temp 98.1 F 12/02/16 06:30 Pulse 63 12/02/16 06:30 Resp 20 12/02/16 06:30 BP 132/82 12/02/16 06:30 Pulse Ox 97 12/02/16 06:30 Intake & Output 12/01/16 12/02/16 12/02/16 18:59 06:59 18:59 Intake Total 140 Balance 140 Intake: Oral 140 Other: # Voids 3 # Bowel Movements 0 Active Medications: Current Medications Acetaminophen (Tylenol) 650 mg PO Q4HR PRN PRN Reason: Mild Pain / Temp above 100 Stop: 01/13/17 13:24 Last Admin: 11/29/16 02:20 Dose: 650 mg Al Hydrox/Mg Hydrox/Simethicone (Maalox) 30 ml PO Q4HR PRN PRN Reason: GI DISTRESS Stop: 01/13/17 13:24 Carbidopa/Levodopa (Sinemet 25 Mg-250 Mg) 1 tab PO QID [facility] Stop: 01/13/17 16:59 Last Admin: 12/02/16 08:32 Dose: 1 tab Docusate Sodium (Colace) 200 mg PO DAILY [facility] Stop: 01/27/17 08:59 Last Admin: 12/02/16 08:32 Dose: 200 mg Haloperidol Decanoate (Haldol Dec) 50 mg IM Q30D [facility] PRN Reason: Protocol Stop: 01/21/17 10:59 Last Admin: 11/22/16 11:08 Dose: 50 mg Lorazepam (Ativan) 1 mg PO Q4HR PRN; Protocol PRN Reason: Anxiety Stop: 01/13/17 14:16 Last Admin: 12/02/16 08:32 Dose: 1 mg Magnesium Hydroxide (Milk Of Magnesia) 30 ml PO HS PRN PRN Reason: Constipation Multivitamins/Vitamin C (Theragran) 1 tab PO DAILY [facility] Stop: 01/14/17 08:59 Last Admin: 12/02/16 08:32 Dose: 1 tab Oxybutynin Chloride (Ditropan Xl) 5 mg PO DAILY [facility] Stop: 01/14/17 08:59 Last Admin: 08/28/17 08:32 Dose: 5 mg Quetiapine Fumarate (Seroquel) 100 mg PO BID [facility] PRN Reason: Protocol Stop: 01/19/17 08:59 Last Admin: 12/02/16 08:32 Dose: 100 mg Quetiapine Fumarate 200 mg/ (Quetiapine Fumarate 50 mg) 250 mg PO HS [facility] Stop: 01/27/17 20:59 Last Admin: 12/01/16 20:49 Dose: Not Given Sodium Chloride (Nacl Tab) 2 gm PO BID [facility] Stop: 01/13/17 16:59 Last Admin: 12/02/16 08:32 Dose: 2 gm Zolpidem Tartrate (Ambien) 5 mg PO HS PRN PRN Reason: Insomnia Stop: 01/13/17 13:24 Last Admin: 11/30/16 20:29 Dose: 5 mg General: No acute distress HEENT: PERRLA Cardiovascular: Regular rate, Normal S1 - Procedures Procedures: Procedures Procedure Code Date INDIVID PSYCHOTHERAP NEC 94.39 10/14/05 OTHER GROUP THERAPY 94.44 11/11/05 RECREATIONAL THERAPY 93.81 10/14/05 Assessment/Plan - Problem List Patient Problems: All Active Problems Bipolar disease, chronic (Acute) F31.9 Depression (Acute) F32.9 HTN (hypertension) (Acute) I10 Parkinson disease (Acute) G20 - Plan Plan: cpm as per psych will monitor Nutritional Asmnt/Malnutr-PDOC - Dietary Evaluation Malnutrition Findings (Please click <Entered> for more info): Nutritional Asmnt/Malnutrition Start: 11/22/16 10: 08 Text: Status: Complete Freq: Document 11/21/16 17:00 [facility] (Rec: 11/22/16 10:14 [facility] [id number]) Nutritional Asmnt/Malnutrition Patient General Information Diagnosis Chronic paranoid schizophrenia with acute exacerbation Pertinent Medical Hx/Surgical Hx Essential HTN, bipolar disorder, depression, Parkinson's disease Subjective Information Pt is a 52-year-old male admitted on 5150 hold with chief complaint of being dangerous to others. Pt was observed in the Dining Room, being intrusive with others. Pt is a poor historian and unable to cooperative in nutrition interview. Pt appears well nourished with no signs of muscle or fat depletion. Current Diet Order/ Nutrition Support Regular Patient / S.O Can't verbalize diet edu Pertinent Medications Reviewed Pertinent Labs Reviewed Nutritional Hx/Data Height 1.85 m Height (Calculated Centimeters) 185.4 Current Weight (lbs) 75.296 kg Weight (Calculated Kilograms) 75.3 Weight (Calculated Grams) 03163.3 [place] Body Weight 184 % [place] Body Weight 90 Weight Status Approriate GI Symptoms GI Symptoms None Food Allergies No Usual diet at home Regular Skin Integrity/Comment: Scotty [place]. Skin intact. Current %PO Good (75-100%) Estimated Nutritional Goals BEE in Kcals: Using Current wt Calories/Kcals/Kg Based on current wt 75.5 kg Kcals Calculated 6466-2497 kcals/day (25-30 kcals/kg) Protein: Using Current wt Protein g/kg: Based on current wt 75.5 kg Protein Calculated 76 gm/day (1 gm/kg) Fluid: ml 4495-2432 ml/day (30-35 ml/kg) Nutritional Problem 1. Problem Problem No nutritional problems at this time. Malnutrition Alert Protein-Calorie Malnutrition N/A Is there a minimum of two criteria No selected? Query Text:Check all the applicable criteria. A minimum of two criteria are recommended for diagnosis of either severe or non-severe malnutrition. Malnutrition Related to Morbid Obesity Malnutrition related to morbid obesity No Intervention/Recommendation Comments 1. Continue with current diet as it is adequate to meet estimated nutritional needs. Expected Outcomes/Goals Expected Outcomes/Goals Have pt meet at least 75% of estimated nutritional needs. Stable wt. Physician Parameters for PEM Normal Weight % 90% - 110% (Normal) Body Mass Index (BMI) 19 - 24 (Normal)
--- NOTE | 2016-12-03 04:03 | Progress Notes ---
DATE: 12/02/2016 SUBJECTIVE: Case was discussed with staff of the patient, reviewed records. The patient continues to look disheveled, disorganized, internally preoccupied. Continues to unable to make safe plan for self-care and needing redirection at times, but in general he is calmer, he is not as loud and demanding as he was. He is sleeping better, eating better. PLAN: So, we will be increasing the Seroquel with no side effects and we will continue with the patient in group therapy, milieu therapy, adjust medication as needed. JOB# [id number]
[2016-12-03] MEDS: Multivitamin Tab PO SCH (09:56)
[2016-12-03] MEDS: Oxybutynin Chloride 5 mg ER Tab PO SCH (09:56)
--- NOTE | 2016-12-03 15:22 | General Progress Note ---
Subjective - Review of Systems Events since last encounter: patient awake, no distress Subjective: awake, resting comfortable nad Objective - Physical Exam Vitals and I&O: Vital Signs Temp 98.0 F 12/03/16 06:27 Pulse 91 12/03/16 06:27 Resp 20 12/03/16 06:27 BP 120/86 12/03/16 06:27 Pulse Ox 94 12/03/16 06:27 Intake & Output 12/02/16 12/03/16 12/03/16 18:59 06:59 18:59 Intake Total 1000 560 Balance 1000 560 Intake: Oral 1000 560 Other: # Voids 4 1 # Bowel Movements 1 0 Active Medications: Current Medications Acetaminophen (Tylenol) 650 mg PO Q4HR PRN PRN Reason: Mild Pain / Temp above 100 Stop: 01/13/17 13:24 Last Admin: 12/02/16 20:28 Dose: 650 mg Al Hydrox/Mg Hydrox/Simethicone (Maalox) 30 ml PO Q4HR PRN PRN Reason: GI DISTRESS Stop: 01/13/17 13:24 Carbidopa/Levodopa (Sinemet 25 Mg-250 Mg) 1 tab PO QID [facility] Stop: 01/13/17 16:59 Last Admin: 12/03/16 09:56 Dose: 1 tab Docusate Sodium (Colace) 200 mg PO DAILY [facility] Stop: 01/27/17 08:59 Last Admin: 12/03/16 09:56 Dose: 200 mg Haloperidol Decanoate (Haldol Dec) 50 mg IM Q30D [facility] PRN Reason: Protocol Stop: 01/21/17 10:59 Last Admin: 11/22/16 11:08 Dose: 50 mg Lorazepam (Ativan) 1 mg PO Q4HR PRN; Protocol PRN Reason: Anxiety Stop: 01/13/17 14:16 Last Admin: 12/03/16 10:09 Dose: 1 mg Magnesium Hydroxide (Milk Of Magnesia) 30 ml PO HS PRN PRN Reason: Constipation Multivitamins/Vitamin C (Theragran) 1 tab PO DAILY [facility] Stop: 01/14/17 08:59 Last Admin: 12/03/16 09:56 Dose: 1 tab Oxybutynin Chloride (Ditropan Xl) 5 mg PO DAILY [facility] Stop: 01/14/17 08:59 Last Admin: 12/03/16 09:56 Dose: 5 mg Quetiapine Fumarate 200 mg/ (Quetiapine Fumarate 50 mg) 250 mg PO HS [facility] Stop: 01/27/17 20:59 Last Admin: 12/02/16 20:28 Dose: 250 mg Quetiapine Fumarate (Seroquel) 150 mg PO BID [facility] PRN Reason: Protocol Stop: 02/01/17 11:27 Sodium Chloride (Nacl Tab) 2 gm PO BID [facility] Stop: 01/13/17 16:59 Last Admin: 12/03/16 10:10 Dose: Not Given Zolpidem Tartrate (Ambien) 5 mg PO HS PRN PRN Reason: Insomnia Stop: 01/13/17 13:24 Last Admin: 11/30/16 20:29 Dose: 5 mg General: No acute distress HEENT: PERRLA Cardiovascular: Regular rate, Normal S1 - Procedures Procedures: Procedures Procedure Code Date INDIVID PSYCHOTHERAP NEC 94.39 10/14/05 OTHER GROUP THERAPY 94.44 11/11/05 RECREATIONAL THERAPY 93.81 10/14/05 Assessment/Plan - Problem List Patient Problems: All Active Problems Bipolar disease, chronic (Acute) F31.9 Depression (Acute) F32.9 HTN (hypertension) (Acute) I10 Parkinson disease (Acute) G20 - Plan Plan: cpm as per psych will monitor Nutritional Asmnt/Malnutr-PDOC - Dietary Evaluation Malnutrition Findings (Please click <Entered> for more info): Nutritional Asmnt/Malnutrition Start: 11/22/16 10: 08 Text: Status: Complete Freq: Document 11/21/16 17:00 [facility] (Rec: 11/22/16 10:14 [facility] [id number]) Nutritional Asmnt/Malnutrition Patient General Information Diagnosis Chronic paranoid schizophrenia with acute exacerbation Pertinent Medical Hx/Surgical Hx Essential HTN, bipolar disorder, depression, Parkinson's disease Subjective Information Pt is a 52-year-old male admitted on 5150 hold with chief complaint of being dangerous to others. Pt was observed in the Dining Room, being intrusive with others. Pt is a poor historian and unable to cooperative in nutrition interview. Pt appears well nourished with no signs of muscle or fat depletion. Current Diet Order/ Nutrition Support Regular Patient / S.O Can't verbalize diet edu Pertinent Medications Reviewed Pertinent Labs Reviewed Nutritional Hx/Data Height 1.85 m Height (Calculated Centimeters) 185.4 Current Weight (lbs) 75.296 kg Weight (Calculated Kilograms) 75.3 Weight (Calculated Grams) 55178.3 [place] Body Weight 184 % [place] Body Weight 90 Weight Status Approriate GI Symptoms GI Symptoms None Food Allergies No Usual diet at home Regular Skin Integrity/Comment: Scotty Gentile. Skin intact. Current %PO Good (75-100%) Estimated Nutritional Goals BEE in Kcals: Using Current wt Calories/Kcals/Kg Based on current wt 75.5 kg Kcals Calculated 5582-4885 kcals/day (25-30 kcals/kg) Protein: Using Current wt Protein g/kg: Based on current wt 75.5 kg Protein Calculated 76 gm/day (1 gm/kg) Fluid: ml 3902-5035 ml/day (30-35 ml/kg) Nutritional Problem 1. Problem Problem No nutritional problems at this time. Malnutrition Alert Protein-Calorie Malnutrition N/A Is there a minimum of two criteria No selected? Query Text:Check all the applicable criteria. A minimum of two criteria are recommended for diagnosis of either severe or non-severe malnutrition. Malnutrition Related to Morbid Obesity Malnutrition related to morbid obesity No Intervention/Recommendation Comments 1. Continue with current diet as it is adequate to meet estimated nutritional needs. Expected Outcomes/Goals Expected Outcomes/Goals Have pt meet at least 75% of estimated nutritional needs. Stable wt. Physician Parameters for PEM Normal Weight % 90% - 110% (Normal) Body Mass Index (BMI) 19 - 24 (Normal)
[2016-12-03 17:44] LABS: ALB/GLOB RATIO 1.5 (1.0-1.8); ALKALINE PHOSPHATASE 65 U/L (34-104); ANION GAP 6.9 (7.0-16.0); BILIRUBIN,TOTAL 0.4 mg/dL (0.3-1.0); BUN - UREA NITROGEN 21 mg/dL (7-25); BUN/CREATININE RATIO 23.3; CALCIUM SERUM 9.6 mg/dL (8.6-10.3); CARBON DIOXIDE 27.2 mEq/L (21.0-31.0); CHLORIDE 99 mEq/L (98-107); CREATININE - SERUM 0.9 mg/dL (0.7-1.3); GLUCOSE 100 mg/dL (70-105); POTASSIUM SERUM 4.1 mEq/L (3.5-5.1); SGOT 21 U/L (13-39); SGPT/ALT 8 U/L (7-52); SODIUM SERUM 129 mEq/L (136-145)
--- NOTE | 2016-12-04 00:24 | Progress Notes ---
DATE: 12/03/2016 Case was discussed with staff of the patient, reviewed records. The patient continues to be irritable. He was in room 57. He said he asked for a shot and that his behavior is always to ask for a shot everyday. He is still unpredictable, impulsive, needing redirection. He is still not stable to be discharged. I will be increasing his Seroquel dose further. No side effects of the medication. No sedation, no nausea, no extrapyramidal symptoms and his current dose of Seroquel is 100 mg twice a day and 250 mg at bedtime. I increased his dose during the day to 150. I will continue to work with patient in group therapy, milieu therapy, adjust medication as needed. His Seroquel dose was increased to 150 mg twice a day. JOB# [id number]
[2016-12-04] MEDS: Multivitamin Tab PO SCH (08:43)
[2016-12-04] MEDS: Oxybutynin Chloride 5 mg ER Tab PO SCH (08:43)
--- NOTE | 2016-12-04 15:00 | General Progress Note ---
Subjective - Review of Systems Events since last encounter: no distress patient awake ,alert Subjective: awake, resting comfortable nad Objective - Results Result Diagrams: 12/03/16 17:10 Recent Labs: Laboratory Last Values Sodium 129 mEq/L (136-145) L 12/03/16 17:10 Potassium 4.1 mEq/L (3.5-5.1) 12/03/16 17:10 Chloride 99 mEq/L (98-107) 12/03/16 17:10 Carbon Dioxide 27.2 mEq/L (21.0-31.0) 12/03/16 17:10 Anion Gap 6.9 (7.0-16.0) L 12/03/16 17:10 BUN 21 mg/dL (7-25) 12/03/16 17:10 Creatinine 0.9 mg/dL (0.7-1.3) 12/03/16 17:10 Est GFR ( Amer) > 60.0 ml/min (>90) 12/03/16 17:10 Est GFR (Non-Af Amer) > 60.0 ml/min 12/03/16 17:10 BUN/Creatinine Ratio 23.3 12/03/16 17:10 Glucose 100 mg/dL (70-105) 12/03/16 17:10 Calcium 9.6 mg/dL (8.6-10.3) 12/03/16 17:10 Total Bilirubin 0.4 mg/dL (0.3-1.0) 12/03/16 17:10 AST 21 U/L (13-39) 12/03/16 17:10 ALT 8 U/L (7-52) 12/03/16 17:10 Alkaline Phosphatase 65 U/L (34-104) 12/03/16 17:10 Total Protein 7.0 gm/dL (6.0-8.3) 12/03/16 17:10 Albumin 4.2 gm/dL (4.2-5.5) 12/03/16 17:10 Globulin 2.8 gm/dL 12/03/16 17:10 Albumin/Globulin Ratio 1.5 (1.0-1.8) 12/03/16 17:10 - Physical Exam Vitals and I&O: Vital Signs Temp 97.9 F 12/04/16 06:24 Pulse 98 12/04/16 06:24 Resp 20 12/04/16 06:24 BP 148/76 12/04/16 06:24 Pulse Ox 99 12/04/16 06:24 Intake & Output 12/03/16 12/04/16 12/04/16 18:59 06:59 18:59 Intake Total 1200 480 Balance 1200 480 Intake: Oral 1200 480 Other: # Voids 4 3 # Bowel Movements 1 0 Active Medications: Current Medications Acetaminophen (Tylenol) 650 mg PO Q4HR PRN PRN Reason: Mild Pain / Temp above 100 Stop: 01/13/17 13:24 Last Admin: 12/02/16 20:28 Dose: 650 mg Al Hydrox/Mg Hydrox/Simethicone (Maalox) 30 ml PO Q4HR PRN PRN Reason: GI DISTRESS Stop: 01/13/17 13:24 Carbidopa/Levodopa (Sinemet 25 Mg-250 Mg) 1 tab PO QID [facility] Stop: 01/13/17 16:59 Last Admin: 12/04/16 14:45 Dose: 1 tab Docusate Sodium (Colace) 200 mg PO DAILY [facility] Stop: 01/27/17 08:59 Last Admin: 12/04/16 08:43 Dose: 200 mg Haloperidol Decanoate (Haldol Dec) 50 mg IM Q30D [facility] PRN Reason: Protocol Stop: 01/21/17 10:59 Last Admin: 11/22/16 11:08 Dose: 50 mg Lorazepam (Ativan) 1 mg PO Q4HR PRN; Protocol PRN Reason: Anxiety Stop: 01/13/17 14:16 Last Admin: 12/04/16 14:45 Dose: 1 mg Magnesium Hydroxide (Milk Of Magnesia) 30 ml PO HS PRN PRN Reason: Constipation Multivitamins/Vitamin C (Theragran) 1 tab PO DAILY [facility] Stop: 01/14/17 08:59 Last Admin: 12/04/16 08:43 Dose: 1 tab Oxybutynin Chloride (Ditropan Xl) 5 mg PO DAILY [facility] Stop: 01/14/17 08:59 Last Admin: 12/04/16 08:43 Dose: 5 mg Quetiapine Fumarate 200 mg/ (Quetiapine Fumarate 50 mg) 250 mg PO HS [facility] Stop: 01/27/17 20:59 Last Admin: 12/03/16 20:26 Dose: 250 mg Quetiapine Fumarate (Seroquel) 150 mg PO BID [facility] PRN Reason: Protocol Stop: 02/01/17 11:27 Last Admin: 12/04/16 08:42 Dose: 150 mg Sodium Chloride (Nacl Tab) 2 gm PO BID [facility] Stop: 01/13/17 16:59 Last Admin: 12/04/16 08:45 Dose: 2 gm Zolpidem Tartrate (Ambien) 5 mg PO HS PRN PRN Reason: Insomnia Stop: 01/13/17 13:24 Last Admin: 12/04/16 00:03 Dose: 5 mg General: No acute distress HEENT: PERRLA Cardiovascular: Regular rate, Normal S1 - Procedures Procedures: Procedures Procedure Code Date INDIVID PSYCHOTHERAP NEC 94.39 10/14/05 OTHER GROUP THERAPY 94.44 11/11/05 RECREATIONAL THERAPY 93.81 10/14/05 Assessment/Plan - Problem List Patient Problems: All Active Problems Bipolar disease, chronic (Acute) F31.9 Depression (Acute) F32.9 HTN (hypertension) (Acute) I10 Parkinson disease (Acute) G20 - Plan Plan: cpm as per psych will monitor Nutritional Asmnt/Malnutr-PDOC - Dietary Evaluation Malnutrition Findings (Please click <Entered> for more info): Nutritional Asmnt/Malnutrition Start: 11/22/16 10: 08 Text: Status: Complete Freq: Document 11/21/16 17:00 [facility] (Rec: 11/22/16 10:14 [facility] [id number]) Nutritional Asmnt/Malnutrition Patient General Information Diagnosis Chronic paranoid schizophrenia with acute exacerbation Pertinent Medical Hx/Surgical Hx Essential HTN, bipolar disorder, depression, Parkinson's disease Subjective Information Pt is a 52-year-old male admitted on 515 hold with chief complaint of being dangerous to others. Pt was observed in the Dining Room, being intrusive with others. Pt is a poor historian and unable to cooperative in nutrition interview. Pt appears well nourished with no signs of muscle or fat depletion. Current Diet Order/ Nutrition Support Regular Patient / S.O Can't verbalize diet edu Pertinent Medications Reviewed Pertinent Labs Reviewed Nutritional Hx/Data Height 1.85 m Height (Calculated Centimeters) 185.4 Current Weight (lbs) 75.296 kg Weight (Calculated Kilograms) 75.3 Weight (Calculated Grams) 02144.3 [place] Body Weight 184 % [place] Body Weight 90 Weight Status Approriate GI Symptoms GI Symptoms None Food Allergies No Usual diet at home Regular Skin Integrity/Comment: Scotty 19. Skin intact. Current %PO Good (75-100%) Estimated Nutritional Goals BEE in Kcals: Using Current wt Calories/Kcals/Kg Based on current wt 75.5 kg Kcals Calculated 3245-7494 kcals/day (25-30 kcals/kg) Protein: Using Current wt Protein g/kg: Based on current wt 75.5 kg Protein Calculated 76 gm/day (1 gm/kg) Fluid: ml 9753-7240 ml/day (30-35 ml/kg) Nutritional Problem 1. Problem Problem No nutritional problems at this time. Malnutrition Alert Protein-Calorie Malnutrition N/A Is there a minimum of two criteria No selected? Query Text:Check all the applicable criteria. A minimum of two criteria are recommended for diagnosis of either severe or non-severe malnutrition. Malnutrition Related to Morbid Obesity Malnutrition related to morbid obesity No Intervention/Recommendation Comments 1. Continue with current diet as it is adequate to meet estimated nutritional needs. Expected Outcomes/Goals Expected Outcomes/Goals Have pt meet at least 75% of estimated nutritional needs. Stable wt. Physician Parameters for PEM Normal Weight % 90% - 110% (Normal) Body Mass Index (BMI) 19 - 24 (Normal)
--- NOTE | 2016-12-04 21:08 | Progress Notes ---
DATE: 12/04/2016 Case was discussed with staff of the patient, reviewed records. The patient today is calmer, he is not banging on the door. He is not asking for a shot. I did increase his Seroquel yesterday. He continues to be unpredictable, impulsive, though he is starting to show progress. He denies any current intent to harm himself or anybody. He is sleeping better, eating better. We are working on discharge plan, and we will continue to work with the patient in group therapy, milieu therapy, adjust medication as needed. JOB# [id number]
[2016-12-05] MEDS: Oxybutynin Chloride 5 mg ER Tab PO SCH (08:34)
[2016-12-05] MEDS: Multivitamin Tab PO SCH (08:34)
--- NOTE | 2016-12-05 09:24 | General Progress Note ---
Subjective - Review of Systems Events since last encounter: no acute distress patient awake Subjective: awake, resting comfortable nad Objective - Results Result Diagrams: 12/03/16 17:10 Recent Labs: Laboratory Last Values Sodium 129 mEq/L (136-145) L 12/03/16 17:10 Potassium 4.1 mEq/L (3.5-5.1) 12/03/16 17:10 Chloride 99 mEq/L (98-107) 12/03/16 17:10 Carbon Dioxide 27.2 mEq/L (21.0-31.0) 12/03/16 17:10 Anion Gap 6.9 (7.0-16.0) L 12/03/16 17:10 BUN 21 mg/dL (7-25) 12/03/16 17:10 Creatinine 0.9 mg/dL (0.7-1.3) 12/03/16 17:10 Est GFR ( Amer) > 60.0 ml/min (>90) 12/03/16 17:10 Est GFR (Non-Af Amer) > 60.0 ml/min 12/03/16 17:10 BUN/Creatinine Ratio 23.3 12/03/16 17:10 Glucose 100 mg/dL (70-105) 12/03/16 17:10 Calcium 9.6 mg/dL (8.6-10.3) 12/03/16 17:10 Total Bilirubin 0.4 mg/dL (0.3-1.0) 12/03/16 17:10 AST 21 U/L (13-39) 12/03/16 17:10 ALT 8 U/L (7-52) 12/03/16 17:10 Alkaline Phosphatase 65 U/L (34-104) 12/03/16 17:10 Total Protein 7.0 gm/dL (6.0-8.3) 12/03/16 17:10 Albumin 4.2 gm/dL (4.2-5.5) 12/03/16 17:10 Globulin 2.8 gm/dL 12/03/16 17:10 Albumin/Globulin Ratio 1.5 (1.0-1.8) 12/03/16 17:10 - Physical Exam Vitals and I&O: Vital Signs Temp 97.9 F 12/05/16 06:07 Pulse 93 12/05/16 06:07 Resp 19 12/05/16 06:07 BP 140/94 12/05/16 06:07 Pulse Ox 95 12/05/16 06:07 Intake & Output 12/04/16 12/05/16 12/05/16 18:59 06:59 18:59 Intake Total 1200 Balance 1200 Intake: Oral 1200 Other: # Voids 4 # Bowel Movements 1 0 Active Medications: Current Medications Acetaminophen (Tylenol) 650 mg PO Q4HR PRN PRN Reason: Mild Pain / Temp above 100 Stop: 01/13/17 13:24 Last Admin: 12/02/16 20:28 Dose: 650 mg Al Hydrox/Mg Hydrox/Simethicone (Maalox) 30 ml PO Q4HR PRN PRN Reason: GI DISTRESS Stop: 01/13/17 13:24 Carbidopa/Levodopa (Sinemet 25 Mg-250 Mg) 1 tab PO QID [facility] Stop: 01/13/17 16:59 Last Admin: 12/05/16 08:34 Dose: Not Given Docusate Sodium (Colace) 200 mg PO DAILY [facility] Stop: 01/27/17 08:59 Last Admin: 12/05/16 08:34 Dose: Not Given Haloperidol Decanoate (Haldol Dec) 50 mg IM Q30D [facility] PRN Reason: Protocol Stop: 01/21/17 10:59 Last Admin: 11/22/16 11:08 Dose: 50 mg Lorazepam (Ativan) 1 mg PO Q4HR PRN; Protocol PRN Reason: Anxiety Stop: 01/13/17 14:16 Last Admin: 12/04/16 14:45 Dose: 1 mg Magnesium Hydroxide (Milk Of Magnesia) 30 ml PO HS PRN PRN Reason: Constipation Multivitamins/Vitamin C (Theragran) 1 tab PO DAILY [facility] Stop: 01/14/17 08:59 Last Admin: 12/05/16 08:34 Dose: Not Given Oxybutynin Chloride (Ditropan Xl) 5 mg PO DAILY [facility] Stop: 01/14/17 08:59 Last Admin: 12/05/16 08:34 Dose: Not Given Quetiapine Fumarate 200 mg/ (Quetiapine Fumarate 50 mg) 250 mg PO HS [facility] Stop: 01/27/17 20:59 Last Admin: 12/04/16 20:56 Dose: Not Given Quetiapine Fumarate (Seroquel) 150 mg PO BID [facility] PRN Reason: Protocol Stop: 02/01/17 11:27 Last Admin: 12/05/16 08:34 Dose: Not Given Sodium Chloride (Nacl Tab) 2 gm PO BID [facility] Stop: 01/13/17 16:59 Last Admin: 12/05/16 08:34 Dose: Not Given Zolpidem Tartrate (Ambien) 5 mg PO HS PRN PRN Reason: Insomnia Stop: 01/13/17 13:24 Last Admin: 12/04/16 00:03 Dose: 5 mg General: No acute distress HEENT: PERRLA Cardiovascular: Regular rate, Normal S1 - Procedures Procedures: Procedures Procedure Code Date INDIVID PSYCHOTHERAP NEC 94.39 10/14/05 OTHER GROUP THERAPY 94.44 11/11/05 RECREATIONAL THERAPY 93.81 10/14/05 Assessment/Plan - Problem List Patient Problems: All Active Problems Bipolar disease, chronic (Acute) F31.9 Depression (Acute) F32.9 HTN (hypertension) (Acute) I10 Parkinson disease (Acute) G20 - Plan Plan: cpm as per psych will monitor Nutritional Asmnt/Malnutr-PDOC - Dietary Evaluation Malnutrition Findings (Please click <Entered> for more info): Nutritional Asmnt/Malnutrition Start: 11/22/16 10: 08 Text: Status: Complete Freq: Document 11/21/16 17:00 [facility] (Rec: 11/22/16 10:14 [facility] [id number]) Nutritional Asmnt/Malnutrition Patient General Information Diagnosis Chronic paranoid schizophrenia with acute exacerbation Pertinent Medical Hx/Surgical Hx Essential HTN, bipolar disorder, depression, Parkinson's disease Subjective Information Pt is a 52-year-old male admitted on 5150 hold with chief complaint of being dangerous to others. Pt was observed in the Dining Room, being intrusive with others. Pt is a poor historian and unable to cooperative in nutrition interview. Pt appears well nourished with no signs of muscle or fat depletion. Current Diet Order/ Nutrition Support Regular Patient / S.O Can't verbalize diet edu Pertinent Medications Reviewed Pertinent Labs Reviewed Nutritional Hx/Data Height 1.85 m Height (Calculated Centimeters) 185.4 Current Weight (lbs) 75.296 kg Weight (Calculated Kilograms) 75.3 Weight (Calculated Grams) 98333.3 [place] Body Weight 184 % [place] Body Weight 90 Weight Status Approriate GI Symptoms GI Symptoms None Food Allergies No Usual diet at home Regular Skin Integrity/Comment: Scotty Gentile. Skin intact. Current %PO Good (75-100%) Estimated Nutritional Goals BEE in Kcals: Using Current wt Calories/Kcals/Kg Based on current wt 75.5 kg Kcals Calculated 4909-5736 kcals/day (25-30 kcals/kg) Protein: Using Current wt Protein g/kg: Based on current wt 75.5 kg Protein Calculated 76 gm/day (1 gm/kg) Fluid: ml 9299-4625 ml/day (30-35 ml/kg) Nutritional Problem 1. Problem Problem No nutritional problems at this time. Malnutrition Alert Protein-Calorie Malnutrition N/A Is there a minimum of two criteria No selected? Query Text:Check all the applicable criteria. A minimum of two criteria are recommended for diagnosis of either severe or non-severe malnutrition. Malnutrition Related to Morbid Obesity Malnutrition related to morbid obesity No Intervention/Recommendation Comments 1. Continue with current diet as it is adequate to meet estimated nutritional needs. Expected Outcomes/Goals Expected Outcomes/Goals Have pt meet at least 75% of estimated nutritional needs. Stable wt. Physician Parameters for PEM Normal Weight % 90% - 110% (Normal) Body Mass Index (BMI) 19 - 24 (Normal)
--- NOTE | 2016-12-05 18:58 | Discharge Summary ---
DATE OF DISCHARGE: 12/05/2016 IDENTIFYING INFORMATION: The patient is 66 years old male. HISTORY OF PRESENT ILLNESS: He was admitted because of psychosis, agitation. The patient was seen by Dr. Palomo. He was aggressive, agitated in the [place] where he [facility]. He started to attack staff and other residents for no apparent reasons, being very angry and irritable, paranoid. He said I do not talk to [place] if he answer questions with Dr. Palomo. He has a history of schizophrenia versus schizoaffective disorder. COURSE IN THE HOSPITAL: The patient was started on medication and medication were adjusted. Dr. Palomo gave him Haldol Decanoate 50 mg intramuscular to be given every month and it was given on 11/22/2016. He was also on Seroquel, the dose was increased to 250 mg at bedtime and 150 mg twice a day. The patient also was continued with carbidopa, levodopa, Sinemet one tablet 4 times a day. The patient progressively got better. He was able to be accepted at the SNF facility, says he improved. He was no longer acting in anyway dangerous. He was no longer shouting or threatening. We felt he could be discharged to a lesser level of care. FINAL DIAGNOSES: AXIS I: Chronic paranoid schizophrenia with acute exacerbation. The patient will be going to a SNF facility. The patient will follow up with the psychiatrist, primary care physician there and a therapist. EXPECTED OUTCOME: Stable if the patient complies with the above. JOB# [id number]
== END 2016-12-05 13:15 | DRG 885 ==
LOC: GERO 09:56
PROVIDERS: ADMIT Psychiatry & Neurology Psychiatry; ATTEND Psychiatry & Neurology Psychiatry
DX: F20.0 Paranoid schizophrenia (principal); G20 Parkinson's disease; E87.1 Hypo-osmolality and hyponatremia; F29 Unspecified psychosis not due to a substance or known physiological condition; F31.9 Bipolar disorder, unspecified; I10 Essential (primary) hypertension; F41.9 Anxiety disorder, unspecified; M19.90 Unspecified osteoarthritis, unspecified site; N32.81 Overactive bladder; G47.00 Insomnia, unspecified; Z88.8 Allergy status to other drugs, medicaments and biological substances
CPT/HCPCS: 36415-UA; 80053-TC; 90899; G0410; J1200; J1630; J1631; J2060; J3230; Z7610